=== PATIENT | female | born 1980 | race Caucasian/White ===

== ENCOUNTER 2017-01-10 17:22 | Observation (INO) | payer MEDICAID ==
[2017-01-10] MEDS ORDERED: Sodium Chloride 0.9% 10 ML Syringe FLUSH PRN (18:00)
[2017-01-10] MEDS ORDERED: Dextrose 5%-Lactated Ringers 1,000 ML IV SCH (18:00)
[2017-01-10] MEDS ORDERED: Ondansetron 4 MG/2 ML SDV IVPUSH PRN ×2 (18:00→20:36)
[2017-01-10] MEDS ORDERED: Nitrofurantoin Monohydrate/Macrocrystalline 100 MG Cap PO ONE (19:48)
[2017-01-10] MEDS ORDERED: hydrOXYzine HCl 25 MG/ML SDV IM ONE ×2 (20:34→21:45)
[2017-01-10] MEDS ORDERED: cefOXitin 2 GM in Premix Bag 1 BAG IV ONE (20:55)
[2017-01-10] MEDS: Lactated Ringers 1,000 ML IV SCH (21:08)
[2017-01-10] MEDS: Pantoprazole 40 MG Vial IVPUSH SCH (21:25)
[2017-01-11 01:32] VITALS: BP 122/66
[2017-01-11] MEDS: Lactated Ringers 1,000 ML IV SCH (05:58)
--- NOTE | 2017-01-11 08:05 | PCM.LDHP ---
L&D History of Present Illness - General Date of Service: 01/11/17 Admit Problem/Dx: Patient Status Order with Admit Dx/Problem 01/10/17 18:00 Patient Status [ADT] Routine 01/10/17 20:39 Admission Status [Patient Status] [ADT] Routine Admission Diagnosis/Problem Admission Diagnosis/Problem complications Source of Information: Patient History Limitations: Reports: No Limitations - History of Present Illness Introduction:: 36-year-old 001 ANNY 02/11/17 presented to labor and delivery on 05/19 at estimated gestational age 35 weeks and 3 days complaining of onset of nausea and vomiting some lower abdominal pain and discomfort but no contractions also complaining of left upper quadrant pain patient was treated with IV hydration and labs were drawn patient has history of anemia taking vitamins at breakfast R and vitamin C at lunch and supper patient urinalysis revealed many bacteria she was given Mefoxin 2 g intravenously and because of persistent nausea and vomiting was placed on observation status patient was given Protonix IV and Zofran IV and Vistaril 50 mg IM patient continued with nausea and vomiting and placed in by mouth gallbladder ultrasound ordered for Monday01/11/17 Improves with: Reports: None Worsens with: Reports: None - Related Data Allergies/Adverse Reactions: Allergies Allergy/AdvReac Type Severity Reaction Status Date / Time No Known Allergies Allergy Verified 10/01/16 19:56 Home Medications: Home Meds Vit #108/Iron/FA [ One Tablet] 1 tab PO DAILY 07/08/16 [History ] Acetaminophen [Tylenol] 650 mg PO Q6H PRN #0 tablet 07/10/16 [Rx] Nitrofurantoin Monohyd/M-Cryst [Macrobid 100 mg Capsule] 100 mg PO BID #20 capsule 01/10/17 [Rx] Nitrofurantoin Monohyd/M-Cryst [Macrobid 100 mg Capsule] 100 mg PO BID #20 capsule 01/10/17 [Rx] Past Medical History - Past Health History Medical/Surgical History: Denies Medical/Surgical History Genitourinary History: Reports: UTI, Recurrent, Other (See Below) Other Genitourinary History: states she was admitted a few months ago for kidney inffention [employer]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: Reports: Hematologic History: Reports: Anemia - Infectious Disease History Infectious Disease History: Reports: None Social & Family History - Family History Family Medical History: Noncontributory - Tobacco Use Smoking Status *Q: Former Smoker Years of Tobacco use: 20 Packs/Tins Daily: 1.5 Used Tobacco, but Quit: Yes Month Tobacco Last Used: 09/29/2016 Second Hand Smoke Exposure: Yes - Caffeine Use Caffeine Use: Reports: Coffee Caffeine Use Comment: drinks coffee daily - Alcohol Use Days Per Week of Alcohol Use: 0 - Recreational Drug Use Recreational Drug Use: No H&P Review of Systems - Review of Systems: Review Of Systems: See Below General: Reports: No Symptoms HEENT: Reports: No Symptoms Pulmonary: Reports: No Symptoms Cardiovascular: Reports: No Symptoms Gastrointestinal: Reports: Abdominal Pain (Left upper quadrant and midline suprapubic contractions) Genitourinary: Reports: No Symptoms Musculoskeletal: Reports: No Symptoms Skin: Reports: No Symptoms Psychiatric: Reports: No Symptoms Neurological: Reports: No Symptoms Hematologic/Lymphatic: Reports: No Symptoms Immunologic: Reports: No Symptoms L&D Exam - Exam Exam: See Below - Vital Signs Vital Signs: Last Vital Signs Temp 98.1 F 01/11/17 01:32 Pulse 79 01/11/17 01:32 Resp 16 01/11/17 01:32 BP 122/66 01/11/17 01:32 Pulse Ox 99 01/11/17 01:32 Weight: 192 lb 8 oz - OB Specific Fundal Height In cm: 35 Heart Tones per Min: 135 - Exam General: Alert, Oriented HEENT: Mucosa Moist & [place] Neck: Supple, Trachea Midline Lungs: Clear to Auscultation, Normal Respiratory Effort Cardiovascular: Regular Rate, Regular Rhythm Abdomen: Normal Bowel Sounds, Soft Extremities: Normal Inspection Skin: Warm, Dry, Intact Psychiatric: Alert, Normal Affect, Normal Mood - Patient Data Lab Results Last 24 hrs: Laboratory Results - last 24 hr 01/10/17 01/10/17 01/10/17 Range/Units 18:00 18:35 18:35 WBC 8.09 (3.98-10.04) K/mm3 RBC 3.17 L (3.98-5.22) M/mm3 Hgb 9.7 L (11.2-15.7) gm/L Hct 28.6 L (34.1-44.9) % MCV 90.2 (79.4-94.8) fl MCH 30.6 (25.6-32.2) pg MCHC 33.9 (32.2-35.5) g/dl RDW Std Deviation 42.3 (36.4-46.3) fL Plt Count 140 L (182-369) K/mm3 MPV 11.6 (9.4-12.3) fl Neut % (Auto) 80.5 H (34.0-71.1) % Lymph % (Auto) 14.5 L (19.3-51.7) % [place] % (Auto) 3.2 L (4.7-12.5) % Eos % (Auto) 1.5 (0.7-5.8) Baso % (Auto) 0.1 (0.1-1.2) % Neut # (Auto) 6.51 H (1.56-6.13) K/mm3 Lymph # (Auto) 1.17 L (1.18-3.74) K/mm3 [place] # (Auto) 0.26 (0.24-0.36) K/mm3 Eos # (Auto) 0.12 (0.04-0.36) K/mm3 Baso # (Auto) 0.01 (0.01-0.08) K/mm3 Sodium 135 L (136-145) mEq/L Potassium 3.4 L (3.5-5.1) mEq/L Chloride 102 (98-107) mEq/L Carbon Dioxide 24 (21-32) mEq/L Anion Gap 12.4 (5-15) BUN 9 (7-18) mg/dL Creatinine 0.8 (0.55-1.02) mg/dL Est Cr Clr Drug Dosing 93.67 mL/min Estimated GFR (MDRD) > 60 (>60) mL/min BUN/Creatinine Ratio 11.3 L (14-18) Glucose 138 H (74-106) mg/dL Calcium 8.8 (8.5-10.1) mg/dL Total Bilirubin 0.2 (0.2-1.0) mg/dL AST 14 L (15-37) U/L ALT 15 (14-59) U/L Alkaline Phosphatase 154 H (46-116) U/L Total Protein 7.0 (6.4-8.2) g/dl Albumin 2.4 L (3.4-5.0) g/dl Globulin 4.6 gm/dL Albumin/Globulin Ratio 0.5 L (1-2) Urine Color Dark yellow (Yellow) Urine Appearance Clear (Clear) Urine pH 6.0 (5.0-8.0) Ur Specific [place] > or = 1.030 (1.005-1.030) Urine Protein 1+ H (Negative) Urine Glucose (UA) Negative (Negative) Urine Ketones Negative (Negative) Urine Occult Blood Trace-intact H (Negative) Urine Nitrite Negative (Negative) Urine Bilirubin 1+ H (Negative) Urine Urobilinogen 0.2 (0.2-1.0) Ur Leukocyte Esterase 2+ H (Negative) Urine RBC 0-5 (0-5) /hpf Urine WBC 50-75 H (0-5) /hpf Ur Epithelial Cells 50-75 H (0-5) /hpf Ur Squamous Epith Cells 50-75 H (0-5) /hpf Urine Bacteria Many H (FEW) /hpf Urine Mucus Moderate H (FEW) /hpf Result Diagrams: 01/10/17 18:35 01/10/17 18:35 Problem List Initiated/Reviewed/Updated: Yes Orders Last 24hrs: Active Orders 24 hr Category Date Time Status Admission Status [Patient Status] [ADT] Routine ADT 01/10/17 20:39 Active Patient Status [ADT] Routine ADT 01/10/17 18:00 Active Monitoring [RC] INTERMITTENT Care 01/10/17 20:40 Active Non Stress Test [RC] PER UNIT ROUTINE Care 01/10/17 18:00 Active Peripheral IV Care [RC] Q2HR Care 01/10/17 18:02 Active Vital Signs [RC] PER UNIT ROUTINE Care 01/10/17 18:00 Active Regular Diet [DIET] Diet 01/10/17 Dinner Active Gallbladder [Abdomen Ltd] [US] Routine Exams 01/11/17 07:00 Ordered CULTURE URINE [RM] Stat Lab 01/10/17 18:00 Results Dextrose 5%-Lactated Ringers 1,000 ml Med 01/10/17 18:00 Active IV ASDIRECTED Lactated Ringers [Ringers, Lactated] 1,000 ml Med 01/10/17 20:45 Active IV ASDIRECTED Ondansetron [Zofran] Med 01/10/17 20:36 Active 4 mg IVPUSH Q4HR PRN Pantoprazole [ProTONIX IV] Med 01/10/17 20:30 Active 40 mg IVPUSH Q12H Sodium Chloride 0.9% [Saline Flush] Med 01/10/17 18:00 Active 10 ml FLUSH ASDIRECTED PRN Peripheral IV Insertion Adult [OM.PC] Urgent Oth 01/10/17 18:00 Ordered Resuscitation Status Routine Resus Stat 01/10/17 18:00 Ordered Medication Orders Dextrose/Lactated Ringer's (Dextrose 5%-Lactated Ringers) 1,000 mls @ 500 mls/ hr IV ASDIRECTED [facility] Last Admin: 01/10/17 18:20 Dose: 500 mls/hr Lactated Ringer's (Ringers, Lactated) 1,000 mls @ 150 mls/hr IV ASDIRECTED [facility] Last Admin: 01/11/17 05:58 Dose: 150 mls/hr Infusion: 01/11/17 03:49 Dose: 150 mls/hr Admin: 01/10/17 21:08 Dose: 150 mls/hr Ondansetron HCl (Zofran) 4 mg IVPUSH Q4HR PRN PRN Reason: Nausea/Vomiting Last Admin: 01/10/17 21:12 Dose: 4 mg Pantoprazole Sodium (Protonix Iv) 40 mg IVPUSH Q12H [facility] Last Admin: 01/10/17 21:25 Dose: 40 mg Sodium Chloride (Saline Flush) 10 ml FLUSH ASDIRECTED PRN PRN Reason: Keep Vein Open Assessment/Plan Comment:: Estimate gestational age Z3A.35 Nausea and vomiting antepartum O21.9 Bacteriuria O99.89
--- NOTE | 2017-01-11 08:17 | PCM.DCSUM1 ---
Discharge Summary - Hospital Course Free Text/Narrative:: [facility] LIVE Admission H&P Patient Name: PUJA DUNLAP Date of : 82 Patient Status: Observation Attending Provider: Zack Boyd Date: 01/11/17 07:57 Initialization Date: 01/11/17 07:57 L&D History of Present Illness - General Date of Service: 01/11/17 Admit Problem/Dx: Patient Status Order with Admit Dx/Problem 01/10/17 18:00 Patient Status [ADT] Routine 01/10/17 20:39 Admission Status [Patient Status] [ADT] Routine Admission Diagnosis/Problem Admission Diagnosis/Problem complications Source of Information: Patient History Limitations: Reports: No Limitations - History of Present Illness Introduction:: 36-year-old 001 ANNY 02/11/17 presented to labor and delivery on 05/19 at estimated gestational age 35 weeks and 3 days complaining of onset of nausea and vomiting some lower abdominal pain and discomfort but no contractions also complaining of left upper quadrant pain patient was treated with IV hydration and labs were drawn patient has history of anemia taking vitamins at breakfast R and vitamin C at lunch and supper patient urinalysis revealed many bacteria she was given Mefoxin 2 g intravenously and because of persistent nausea and vomiting was placed on observation status patient was given Protonix IV and Zofran IV and Vistaril 50 mg IM patient continued with nausea and vomiting and placed in by mouth gallbladder ultrasound ordered for Monday01/11/17 Improves with: Reports: None Worsens with: Reports: None - Related Data Allergies/Adverse Reactions: Allergies Allergy/AdvReac Type Severity Reaction Status Date / Time No Known Allergies Allergy Verified 10/01/16 19:56 Home Medications: Home Meds Vit #108/Iron/FA [ One Tablet] 1 tab PO DAILY 07/08/16 [History ] Acetaminophen [Tylenol] 650 mg PO Q6H PRN #0 tablet 07/10/16 [Rx] Nitrofurantoin Monohyd/M-Cryst [Macrobid 100 mg Capsule] 100 mg PO BID #20 capsule 01/10/17 [Rx] Nitrofurantoin Monohyd/M-Cryst [Macrobid 100 mg Capsule] 100 mg PO BID #20 capsule 01/10/17 [Rx] Past Medical History - Past Health History Medical/Surgical History: Denies Medical/Surgical History Genitourinary History: Reports: UTI, Recurrent, Other (See Below) Other Genitourinary History: states she was admitted a few months ago for kidney inffention [employer] History: Reports: Hematologic History: Reports: Anemia - Infectious Disease History Infectious Disease History: Reports: None Social & Family History - Family History Family Medical History: Noncontributory - Tobacco Use Smoking Status *Q: Former Smoker Years of Tobacco use: 20 Packs/Tins Daily: 1.5 Used Tobacco, but Quit: Yes Month Tobacco Last Used: 09/29/2016 Second Hand Smoke Exposure: Yes - Caffeine Use Caffeine Use: Reports: Coffee Caffeine Use Comment: drinks coffee daily - Alcohol Use Days Per Week of Alcohol Use: 0 - Recreational Drug Use Recreational Drug Use: No H&P Review of Systems - Review of Systems: Review Of Systems: See Below General: Reports: No Symptoms HEENT: Reports: No Symptoms Pulmonary: Reports: No Symptoms Cardiovascular: Reports: No Symptoms Gastrointestinal: Reports: Abdominal Pain (Left upper quadrant and midline suprapubic contractions) Genitourinary: Reports: No Symptoms Musculoskeletal: Reports: No Symptoms Skin: Reports: No Symptoms Psychiatric: Reports: No Symptoms Neurological: Reports: No Symptoms Hematologic/Lymphatic: Reports: No Symptoms Immunologic: Reports: No Symptoms L&D Exam - Exam Exam: See Below - Vital Signs Vital Signs: Last Vital Signs Temp 98.1 F 01/11/17 01:32 Pulse 79 01/11/17 01:32 Resp 16 01/11/17 01:32 BP 122/66 01/11/17 01:32 Pulse Ox 99 01/11/17 01:32 Weight: 192 lb 8 oz - OB Specific Fundal Height In cm: 35 Heart Tones per Min: 135 - Exam General: Alert, Oriented HEENT: Mucosa Moist & [place] Neck: Supple, Trachea Midline Lungs: Clear to Auscultation, Normal Respiratory Effort Cardiovascular: Regular Rate, Regular Rhythm Abdomen: Normal Bowel Sounds, Soft Extremities: Normal Inspection Skin: Warm, Dry, Intact Psychiatric: Alert, Normal Affect, Normal Mood - Patient Data Lab Results Last 24 hrs: Laboratory Results - last 24 hr 01/10/17 01/10/17 01/10/17 Range/Units 18:00 18:35 18:35 WBC 8.09 (3.98-10.04) K/mm3 RBC 3.17 L (3.98-5.22) M/mm3 Hgb 9.7 L (11.2-15.7) gm/L Hct 28.6 L (34.1-44.9) % MCV 90.2 (79.4-94.8) fl MCH 30.6 (25.6-32.2) pg MCHC 33.9 (32.2-35.5) g/dl RDW Std Deviation 42.3 (36.4-46.3) fL Plt Count 140 L (182-369) K/mm3 MPV 11.6 (9.4-12.3) fl Neut % (Auto) 80.5 H (34.0-71.1) % Lymph % (Auto) 14.5 L (19.3-51.7) % [place] % (Auto) 3.2 L (4.7-12.5) % Eos % (Auto) 1.5 (0.7-5.8) Baso % (Auto) 0.1 (0.1-1.2) % Neut # (Auto) 6.51 H (1.56-6.13) K/mm3 Lymph # (Auto) 1.17 L (1.18-3.74) K/mm3 [place] # (Auto) 0.26 (0.24-0.36) K/mm3 Eos # (Auto) 0.12 (0.04-0.36) K/mm3 Baso # (Auto) 0.01 (0.01-0.08) K/mm3 Sodium 135 L (136-145) mEq/L Potassium 3.4 L (3.5-5.1) mEq/L Chloride 102 (98-107) mEq/L Carbon Dioxide 24 (21-32) mEq/L Anion Gap 12.4 (5-15) BUN 9 (7-18) mg/dL Creatinine 0.8 (0.55-1.02) mg/dL Est Cr Clr Drug Dosing 93.67 mL/min Estimated GFR (MDRD) > 60 (>60) mL/min BUN/Creatinine Ratio 11.3 L (14-18) Glucose 138 H (74-106) mg/dL Calcium 8.8 (8.5-10.1) mg/dL Total Bilirubin 0.2 (0.2-1.0) mg/dL AST 14 L (15-37) U/L ALT 15 (14-59) U/L Alkaline Phosphatase 154 H (46-116) U/L Total Protein 7.0 (6.4-8.2) g/dl Albumin 2.4 L (3.4-5.0) g/dl Globulin 4.6 gm/dL Albumin/Globulin Ratio 0.5 L (1-2) Urine Color Dark yellow (Yellow) Urine Appearance Clear (Clear) Urine pH 6.0 (5.0-8.0) Ur Specific [place] > or = 1.030 (1.005-1.030) Urine Protein 1+ H (Negative) Urine Glucose (UA) Negative (Negative) Urine Ketones Negative (Negative) Urine Occult Blood Trace-intact H (Negative) Urine Nitrite Negative (Negative) Urine Bilirubin 1+ H (Negative) Urine Urobilinogen 0.2 (0.2-1.0) Ur Leukocyte Esterase 2+ H (Negative) Urine RBC 0-5 (0-5) /hpf Urine WBC 50-75 H (0-5) /hpf Ur Epithelial Cells 50-75 H (0-5) /hpf Ur Squamous Epith Cells 50-75 H (0-5) /hpf Urine Bacteria Many H (FEW) /hpf Urine Mucus Moderate H (FEW) /hpf Result Diagrams: 01/10/17 18:35 01/10/17 18:35 Problem List Initiated/Reviewed/Updated: Yes Orders Last 24hrs: Active Orders 24 hr Category Date Time Status Admission Status [Patient Status] [ADT] Routine ADT 01/10/17 20:39 Active Patient Status [ADT] Routine ADT 01/10/17 18:00 Active Monitoring [RC] INTERMITTENT Care 01/10/17 20:40 Active Non Stress Test [RC] PER UNIT ROUTINE Care 01/10/17 18:00 Active Peripheral IV Care [RC] Q2HR Care 01/10/17 18:02 Active Vital Signs [RC] PER UNIT ROUTINE Care 01/10/17 18:00 Active Regular Diet [DIET] Diet 01/10/17 Dinner Active Gallbladder [Abdomen Ltd] [US] Routine Exams 01/11/17 07:00 Ordered CULTURE URINE [RM] Stat Lab 01/10/17 18:00 Results Dextrose 5%-Lactated Ringers 1,000 ml Med 01/10/17 18:00 Active IV ASDIRECTED Lactated Ringers [Ringers, Lactated] 1,000 ml Med 01/10/17 20:45 Active IV ASDIRECTED Ondansetron [Zofran] Med 01/10/17 20:36 Active 4 mg IVPUSH Q4HR PRN Pantoprazole [ProTONIX IV] Med 01/10/17 20:30 Active 40 mg IVPUSH Q12H Sodium Chloride 0.9% [Saline Flush] Med 01/10/17 18:00 Active 10 ml FLUSH ASDIRECTED PRN Peripheral IV Insertion Adult [OM.PC] Urgent Oth 01/10/17 18:00 Ordered Resuscitation Status Routine Resus Stat 01/10/17 18:00 Ordered Medication Orders Dextrose/Lactated Ringer's (Dextrose 5%-Lactated Ringers) 1,000 mls @ 500 mls/ hr IV ASDIRECTED ETTA Last Admin: 01/10/17 18:20 Dose: 500 mls/hr Lactated Ringer's (Ringers, Lactated) 1,000 mls @ 150 mls/hr IV ASDIRECTED ETTA Last Admin: 01/11/17 05:58 Dose: 150 mls/hr Infusion: 01/11/17 03:49 Dose: 150 mls/hr Admin: 01/10/17 21:08 Dose: 150 mls/hr Ondansetron HCl (Zofran) 4 mg IVPUSH Q4HR PRN PRN Reason: Nausea/Vomiting Last Admin: 01/10/17 21:12 Dose: 4 mg Pantoprazole Sodium (Protonix Iv) 40 mg IVPUSH Q12H [facility] Last Admin: 01/10/17 21:25 Dose: 40 mg Sodium Chloride (Saline Flush) 10 ml FLUSH ASDIRECTED PRN PRN Reason: Keep Vein Open Assessment/Plan Comment:: Estimate gestational age Z3A.35 Nausea and vomiting antepartum O21.9 Bacteriuria O99.89 01/11/17 Patient feeling better this morning hungry after gallbladder ultrasound with patient will heat and be dismissed canceled today's clinic appointment see me in the clinic on Monday01/16/17 HPI Initial Comments: [facility] LIVE Admission H&P Patient Name: PUJA DUNLAP Date of : 82 Patient Status: Observation Attending Provider: Zack Boyd Date: 01/11/17 07:57 Initialization Date: 01/11/17 07:57 L&D History of Present Illness - General Date of Service: 01/11/17 Admit Problem/Dx: Patient Status Order with Admit Dx/Problem 01/10/17 18:00 Patient Status [ADT] Routine 01/10/17 20:39 Admission Status [Patient Status] [ADT] Routine Admission Diagnosis/Problem Admission Diagnosis/Problem complications Source of Information: Patient History Limitations: Reports: No Limitations - History of Present Illness Introduction:: 36-year-old 001 ANNY 02/11/17 presented to labor and delivery on 05/19 at estimated gestational age 35 weeks and 3 days complaining of onset of nausea and vomiting some lower abdominal pain and discomfort but no contractions also complaining of left upper quadrant pain patient was treated with IV hydration and labs were drawn patient has history of anemia taking vitamins at breakfast R and vitamin C at lunch and supper patient urinalysis revealed many bacteria she was given Mefoxin 2 g intravenously and because of persistent nausea and vomiting was placed on observation status patient was given Protonix IV and Zofran IV and Vistaril 50 mg IM patient continued with nausea and vomiting and placed in by mouth gallbladder ultrasound ordered for Monday01/11/17 Improves with: Reports: None Worsens with: Reports: None - Related Data Allergies/Adverse Reactions: Allergies Allergy/AdvReac Type Severity Reaction Status Date / Time No Known Allergies Allergy Verified 10/01/16 19:56 Home Medications: Home Meds Vit #108/Iron/FA [ One Tablet] 1 tab PO DAILY 07/08/16 [History ] Acetaminophen [Tylenol] 650 mg PO Q6H PRN #0 tablet 07/10/16 [Rx] Nitrofurantoin Monohyd/M-Cryst [Macrobid 100 mg Capsule] 100 mg PO BID #20 capsule 01/10/17 [Rx] Nitrofurantoin Monohyd/M-Cryst [Macrobid 100 mg Capsule] 100 mg PO BID #20 capsule 01/10/17 [Rx] Past Medical History - Past Health History Medical/Surgical History: Denies Medical/Surgical History Genitourinary History: Reports: UTI, Recurrent, Other (See Below) Other Genitourinary History: states she was admitted a few months ago for kidney inffention [employer] History: Reports: Hematologic History: Reports: Anemia - Infectious Disease History Infectious Disease History: Reports: None Social & Family History - Family History Family Medical History: Noncontributory - Tobacco Use Smoking Status *Q: Former Smoker Years of Tobacco use: 20 Packs/Tins Daily: 1.5 Used Tobacco, but Quit: Yes Month Tobacco Last Used: 09/29/2016 Second Hand Smoke Exposure: Yes - Caffeine Use Caffeine Use: Reports: Coffee Caffeine Use Comment: drinks coffee daily - Alcohol Use Days Per Week of Alcohol Use: 0 - Recreational Drug Use Recreational Drug Use: No H&P Review of Systems - Review of Systems: Review Of Systems: See Below General: Reports: No Symptoms HEENT: Reports: No Symptoms Pulmonary: Reports: No Symptoms Cardiovascular: Reports: No Symptoms Gastrointestinal: Reports: Abdominal Pain (Left upper quadrant and midline suprapubic contractions) Genitourinary: Reports: No Symptoms Musculoskeletal: Reports: No Symptoms Skin: Reports: No Symptoms Psychiatric: Reports: No Symptoms Neurological: Reports: No Symptoms Hematologic/Lymphatic: Reports: No Symptoms Immunologic: Reports: No Symptoms L&D Exam - Exam Exam: See Below - Vital Signs Vital Signs: Last Vital Signs Temp 98.1 F 01/11/17 01:32 Pulse 79 01/11/17 01:32 Resp 16 01/11/17 01:32 BP 122/66 01/11/17 01:32 Pulse Ox 99 01/11/17 01:32 Weight: 192 lb 8 oz - OB Specific Fundal Height In cm: 35 Heart Tones per Min: 135 - Exam General: Alert, Oriented HEENT: Mucosa Moist & [place] Neck: Supple, Trachea Midline Lungs: Clear to Auscultation, Normal Respiratory Effort Cardiovascular: Regular Rate, Regular Rhythm Abdomen: Normal Bowel Sounds, Soft Extremities: Normal Inspection Skin: Warm, Dry, Intact Psychiatric: Alert, Normal Affect, Normal Mood - Patient Data Lab Results Last 24 hrs: Laboratory Results - last 24 hr 01/10/17 01/10/17 01/10/17 Range/Units 18:00 18:35 18:35 WBC 8.09 (3.98-10.04) K/mm3 RBC 3.17 L (3.98-5.22) M/mm3 Hgb 9.7 L (11.2-15.7) gm/L Hct 28.6 L (34.1-44.9) % MCV 90.2 (79.4-94.8) fl MCH 30.6 (25.6-32.2) pg MCHC 33.9 (32.2-35.5) g/dl RDW Std Deviation 42.3 (36.4-46.3) fL Plt Count 140 L (182-369) K/mm3 MPV 11.6 (9.4-12.3) fl Neut % (Auto) 80.5 H (34.0-71.1) % Lymph % (Auto) 14.5 L (19.3-51.7) % [place] % (Auto) 3.2 L (4.7-12.5) % Eos % (Auto) 1.5 (0.7-5.8) Baso % (Auto) 0.1 (0.1-1.2) % Neut # (Auto) 6.51 H (1.56-6.13) K/mm3 Lymph # (Auto) 1.17 L (1.18-3.74) K/mm3 [place] # (Auto) 0.26 (0.24-0.36) K/mm3 Eos # (Auto) 0.12 (0.04-0.36) K/mm3 Baso # (Auto) 0.01 (0.01-0.08) K/mm3 Sodium 135 L (136-145) mEq/L Potassium 3.4 L (3.5-5.1) mEq/L Chloride 102 (98-107) mEq/L Carbon Dioxide 24 (21-32) mEq/L Anion Gap 12.4 (5-15) BUN 9 (7-18) mg/dL Creatinine 0.8 (0.55-1.02) mg/dL Est Cr Clr Drug Dosing 93.67 mL/min Estimated GFR (MDRD) > 60 (>60) mL/min BUN/Creatinine Ratio 11.3 L (14-18) Glucose 138 H (74-106) mg/dL Calcium 8.8 (8.5-10.1) mg/dL Total Bilirubin 0.2 (0.2-1.0) mg/dL AST 14 L (15-37) U/L ALT 15 (14-59) U/L Alkaline Phosphatase 154 H (46-116) U/L Total Protein 7.0 (6.4-8.2) g/dl Albumin 2.4 L (3.4-5.0) g/dl Globulin 4.6 gm/dL Albumin/Globulin Ratio 0.5 L (1-2) Urine Color Dark yellow (Yellow) Urine Appearance Clear (Clear) Urine pH 6.0 (5.0-8.0) Ur Specific [place] > or = 1.030 (1.005-1.030) Urine Protein 1+ H (Negative) Urine Glucose (UA) Negative (Negative) Urine Ketones Negative (Negative) Urine Occult Blood Trace-intact H (Negative) Urine Nitrite Negative (Negative) Urine Bilirubin 1+ H (Negative) Urine Urobilinogen 0.2 (0.2-1.0) Ur Leukocyte Esterase 2+ H (Negative) Urine RBC 0-5 (0-5) /hpf Urine WBC 50-75 H (0-5) /hpf Ur Epithelial Cells 50-75 H (0-5) /hpf Ur Squamous Epith Cells 50-75 H (0-5) /hpf Urine Bacteria Many H (FEW) /hpf Urine Mucus Moderate H (FEW) /hpf Result Diagrams: 01/10/17 18:35 01/10/17 18:35 Problem List Initiated/Reviewed/Updated: Yes Orders Last 24hrs: Active Orders 24 hr Category Date Time Status Admission Status [Patient Status] [ADT] Routine ADT 01/10/17 20:39 Active Patient Status [ADT] Routine ADT 01/10/17 18:00 Active Monitoring [RC] INTERMITTENT Care 01/10/17 20:40 Active Non Stress Test [RC] PER UNIT ROUTINE Care 01/10/17 18:00 Active Peripheral IV Care [RC] Q2HR Care 01/10/17 18:02 Active Vital Signs [RC] PER UNIT ROUTINE Care 01/10/17 18:00 Active Regular Diet [DIET] Diet 01/10/17 Dinner Active Gallbladder [Abdomen Ltd] [US] Routine Exams 01/11/17 07:00 Ordered CULTURE URINE [RM] Stat Lab 01/10/17 18:00 Results Dextrose 5%-Lactated Ringers 1,000 ml Med 01/10/17 18:00 Active IV ASDIRECTED Lactated Ringers [Ringers, Lactated] 1,000 ml Med 01/10/17 20:45 Active IV ASDIRECTED Ondansetron [Zofran] Med 01/10/17 20:36 Active 4 mg IVPUSH Q4HR PRN Pantoprazole [ProTONIX IV] Med 01/10/17 20:30 Active 40 mg IVPUSH Q12H Sodium Chloride 0.9% [Saline Flush] Med 01/10/17 18:00 Active 10 ml FLUSH ASDIRECTED PRN Peripheral IV Insertion Adult [OM.PC] Urgent Oth 01/10/17 18:00 Ordered Resuscitation Status Routine Resus Stat 01/10/17 18:00 Ordered Medication Orders Dextrose/Lactated Ringer's (Dextrose 5%-Lactated Ringers) 1,000 mls @ 500 mls/ hr IV ASDIRECTED ETTA Last Admin: 01/10/17 18:20 Dose: 500 mls/hr Lactated Ringer's (Ringers, Lactated) 1,000 mls @ 150 mls/hr IV ASDIRECTED ETTA Last Admin: 01/11/17 05:58 Dose: 150 mls/hr Infusion: 01/11/17 03:49 Dose: 150 mls/hr Admin: 01/10/17 21:08 Dose: 150 mls/hr Ondansetron HCl (Zofran) 4 mg IVPUSH Q4HR PRN PRN Reason: Nausea/Vomiting Last Admin: 01/10/17 21:12 Dose: 4 mg Pantoprazole Sodium (Protonix Iv) 40 mg IVPUSH Q12H [facility] Last Admin: 01/10/17 21:25 Dose: 40 mg Sodium Chloride (Saline Flush) 10 ml FLUSH ASDIRECTED PRN PRN Reason: Keep Vein Open Assessment/Plan Comment:: Estimate gestational age Z3A.35 Nausea and vomiting antepartum O21.9 Bacteriuria O99.89 01/11/17 Patient feeling better this morning hungry after gallbladder ultrasound with patient will heat and be dismissed canceled today's clinic appointment see me in the clinic on Monday01/16/17 Brief History: [facility]IVE . Ad[facility]P . [facility]: [id number]. Date of : [birth year]Patient Status: Observation. Attending Provider: Zack Boyd Number: [id number]. Date: 01/11/17 07:57Initialization Date: 01/11/17 07:57. L&D History of Present Illness. - General. Date of Service: 01/11/17. Admit Problem/Dx: Patient Status Order with Admit Dx/Problem. 01/10/17 18:00. Patient Status [ADT] Routine. 01/10/17 20:39. Admission Status [Patient Status] [ADT] Routine. Admission Diagnosis/Problem. Admission Diagnosis/ Problem complications. Source of Information: Patient. History Limitations: Reports: No Limitations. - History of Present Illness. Introduction:: 36-year-old 001 ANNY 02/11/17 presented to labor and delivery on Monday01/10/17 at estimated gestational age 35 weeks and 3 days complaining of onset of nausea and vomiting some lower abdominal pain and discomfort but no contractions also complaining of left upper quadrant pain patient was treated with IV hydration and labs were drawn patient has history of anemia taking vitamins at breakfast R and vitamin C at lunch and supper patient urinalysis revealed many bacteria she was given Mefoxin 2 g intravenously and because of persistent nausea and vomiting was placed on observation status patient was given Protonix IV and Zofran IV and Vistaril 50 mg IM patient continued with nausea and vomiting and placed in by mouth gallbladder ultrasound ordered for Monday01/11/17. Improves with: Reports: None. Worsens with: Reports: None. - Related Data. Allergies/ Adverse Reactions: Allergies. Allergy/AdvReacTypeSeverityReactionStatusDate / Time. No Known [id number]/01/17 19:56. Home Medications: Home Meds. Vit #108/Iron/FA [ One Tablet] 1 tab PO DAILY 07/08 [History]. Acetaminophen [Tylenol] 650 mg PO Q6H PRN #0 tablet 07/10/16 [Rx ]. Nitrofurantoin Monohyd/M-Cryst [Macrobid 100 mg Capsule] 100 mg PO BID #20 capsule 01/10/17 [Rx]. Nitrofurantoin Monohyd/M-Cryst [Macrobid 100 mg Capsule ] 100 mg PO BID #20 capsule 01/10/17 [Rx]. Past Medical History. - Past Health History. Medical/Surgical History: Denies Medical/Surgical History. Genitourinary History: Reports: UTI, Recurrent, Other (See Below). Other Genitourinary History: states she was admitted a few months ago for kidney inffention. [employer] History: Reports: . Hematologic History: Reports: Anemia. - Infectious Disease History. Infectious Disease History: Reports: None. Social & Family History. - Family History. Family Medical History: Noncontributory. - Tobacco Use. Smoking Status *Q: Former Smoker. Years of Tobacco use: 20. Packs/Tins Daily: 1.5. Used Tobacco, but Quit: Yes. Month Tobacco Last Used: 09/29/2016. Second Hand Smoke Exposure: Yes. - Caffeine Use. Caffeine Use: Reports: Coffee. Caffeine Use Comment: drinks coffee daily. - Alcohol Use. Days Per Week of Alcohol Use: 0. - Recreational Drug Use. Recreational Drug Use: No. H&P Review of Systems. - Review of Systems: Review Of Systems: See Below. General: Reports: No Symptoms. HEENT: Reports: No Symptoms. Pulmonary: Reports: No Symptoms. Cardiovascular: Reports: No Symptoms. Gastrointestinal: Reports: Abdominal Pain (Left upper quadrant and midline suprapubic contractions). Genitourinary: Reports: No Symptoms. Musculoskeletal: Reports: No Symptoms. Skin: Reports: No Symptoms. Psychiatric : Reports: No Symptoms. Neurological: Reports: No Symptoms. Hematologic/ Lymphatic: Reports: No Symptoms. Immunologic: Reports: No Symptoms. L&D Exam. - Exam. Exam: See Below. - Vital Signs. Vital Signs: Last Vital Signs. Temp 98.1 F 01/11/17 01:32. Pulse 79 01/11/17 01:32. Resp 16 01/11/17 01: 32. BP 122/66 01/11/17 01:32. Pulse Ox 99 01/11/17 01:32. Weight: 192 lb 8 oz. - OB Specific. Fundal Height In cm: 35. Heart Tones per Min: 135. - Exam. General: Alert, Oriented. HEENT: Mucosa Moist & [place]. Neck: Supple, Trachea Midline. Lungs: Clear to Auscultation, Normal Respiratory Effort. Cardiovascular: Regular Rate, Regular Rhythm. Abdomen: Normal Bowel Sounds, Soft. Extremities: Normal Inspection. Skin: Warm, Dry, Intact. Psychiatric: Alert, Normal Affect, Normal Mood. - Patient Data. Lab Results Last 24 hrs: Laboratory Results - last 24 hr. 01/10/1707/05/1707Range/Units. 18:0018: 3518:35. WBC 8.09 (3.98-10.04) K/mm3. RBC 3.17 L (3.98-5.22) M/mm3. Hgb 9.7 L (11.2-15.7) gm/L. Hct 28.6 L (34.1-44.9) %. MCV 90.2 (79.4-94.8) fl. MCH 30.6 (25.6-32.2) pg. MCHC 33.9 (32.2-35.5) g/dl. RDW Std Deviation 42.3 (36.4-46.3) fL. Plt Count 140 L (182-369) K/mm3. MPV 11.6 (9.4-12.3) fl. Neut % (Auto) 80.5 H (34.0-71.1) %. Lymph % (Auto) 14.5 L (19.3-51.7) % . [place] % (Auto) 3.2 L (4.7-12.5) %. Eos % (Auto) 1.5 (0.7-5.8). Baso % (Auto ) 0.1 (0.1-1.2) %. Neut # (Auto) 6.51 H (1.56-6.13) K/mm3. Lymph # (Auto) 1.17 L (1.18-3.74) K/mm3. [place] # (Auto) 0.26 (0.24-0.36) K/mm3. Eos # (Auto ) 0.12 (0.04-0.36) K/mm3. Baso # (Auto) 0.01 (0.01-0.08) K/mm3. Sodium 135 L (136-145) mEq/L. Potassium 3.4 L (3.5-5.1) mEq/L. Chloride 102 (98-107) mEq/L. Carbon Dioxide 24 (21-32) mEq/L. Anion Gap 12.4 (5-15). BUN 9 (7-18) mg/dL. Creatinine 0.8 (0.55-1.02) mg/dL. Est Cr Clr Drug Dosing 93.67 mL/ min. Estimated GFR (MDRD) > 60 (>60) mL/min. BUN/Creatinine Ratio 11.3 L (14- 18). Glucose 138 H (74-106) mg/dL. Calcium 8.8 (8.5-10.1) mg/dL. Total Bilirubin 0.2 (0.2-1.0) mg/dL. AST 14 L (15-37) U/L. ALT 15 (14-59) U/L. Alkaline Phosphatase 154 H (46-116) U/L. Total Protein 7.0 (6.4-8.2) g/dl. Albumin 2.4 L (3.4-5.0) g/dl. Globulin 4.6 gm/dL. Albumin/Globulin Ratio 0.5 L (1-2). Urine Color Dark yellow (Yellow). Urine Appearance Clear (Clear). Urine pH 6.0 (5.0-8.0). Ur Specific [place] > or = 1.030 (1.005-1.030). Urine Protein 1+ H (Negative). Urine Glucose (UA) Negative (Negative). Urine Ketones Negative (Negative). Urine Occult Blood Trace-intact H (Negative). Urine Nitrite Negative (Negative). Urine Bilirubin 1+ H (Negative). Urine Urobilinogen 0.2 (0.2-1.0). Ur Leukocyte Esterase 2+ H (Negative). Urine RBC 0 -5 (0-5) /hpf. Urine WBC 50-75 H (0-5) /hpf. Ur Epithelial Cells 50-75 H (0- 5) /hpf. Ur Squamous Epith Cells 50-75 H (0-5) /hpf. Urine Bacteria Many H ( FEW) /hpf. Urine Mucus Moderate H (FEW) /hpf. Result Diagrams: 01/10/17 18: 35. 01/10/17 18:35. Problem List Initiated/Reviewed/Updated: Yes. Orders Last 24hrs: Active Orders 24 hr. CategoryDate TimeStatus. Admission Status [ Patient Status] [ADT] RoutineADT 01/10/17 20:39Active. Patient Status [ADT] RoutineADT 01/10/17 18:00Active. Monitoring [RC] INTERMITTENTCare 20:40Active. Non Stress Test [RC] PER UNIT ROUTINECare 01/10/17 18: 00Active. Peripheral IV Care [RC] [id number] 01/10/17 18:02Active. Vital Signs [ RC] PER UNIT ROUTINECare 01/10/17 18:00Active. Regular Diet [DIET]Diet DinnerActive. Gallbladder [Abdomen Ltd] [US] RoutineExams 01/11/17 07: 00Ordered. CULTURE URINE [] StatLab 01/10/17 18:00Results. Dextrose 5%- Lactated Ringers 1,000 mlMed 01/10/17 18:00Active. IV ASDIRECTED. Lactated Ringers [Ringers, Lactated] 1,000 mlMed 01/10/17 20:45Active. IV ASDIRECTED. Ondansetron [Zofran]Med 01/10/17 20:36Active. 4 mg IVPUSH Q4HR PRN. Pantoprazole [ProTONIX IV]Med 01/10/17 20:30Active. 40 mg IVPUSH Q12H. Sodium Chloride 0.9% [Saline Flush]Med 01/10/17 18:00Active. 10 ml FLUSH ASDIRECTED PRN. Peripheral IV Insertion Adult [OM.PC] UrgentOth 01/10/17 18: 00Ordered. Resuscitation Status RoutineResus Stat 01/10/17 18:00Ordered. Medication Orders. Dextrose/Lactated Ringer's (Dextrose 5%-Lactated Ringers) 1 ,000 mls @ 500 mls/hr IV ASDIRECTED ETTA. Last Admin: 01/10/17 18:20 Dose: 500 mls/hr. Lactated Ringer's (Ringers, Lactated) 1,000 mls @ 150 mls/hr IV ASDIRECTED ETTA. Last Admin: 01/11/17 05:58 Dose: 150 mls/hr. Infusion: 03:49 Dose: 150 mls/hr. Admin: 01/10/17 21:08 Dose: 150 mls/hr. Ondansetron HCl (Zofran) 4 mg IVPUSH Q4HR PRN. PRN Reason: Nausea/Vomiting. Last Admin: 01/10/17 21:12 Dose: 4 mg. Pantoprazole Sodium (Protonix Iv) 40 mg IVPUSH Q12H ETTA. Last Admin: 01/10/17 21:25 Dose: 40 mg. Sodium Chloride (Saline Flush) 10 ml FLUSH ASDIRECTED PRN. PRN Reason: Keep Vein Open. Assessment/Plan Comment:: Estimate gestational age Z3A.35. Nausea and vomiting antepartum O21.9. Bacteriuria O99.89. 01/11/17. Patient feeling better this morning hungry after gallbladder ultrasound with patient will heat and be dismissed canceled today's clinic appointment see me in the clinic on Monday01/16/17 - Discharge Data Discharge Date: 01/11/17 Discharge Disposition: Home, Self-Care 01 Condition: Good - Discharge Diagnosis/Problem(s) (1) 35 weeks gestation of SNOMED Code(s): 40575980 ICD Code: Z3A.35 - 35 WEEKS GESTATION OF Status: Acute Current Visit: Yes (2) Bacteriuria during in third trimester SNOMED Code(s): 61569564 ICD Code: O99.89 - OTH DISEASES AND CONDITIONS COMPL PREG/CHLDBRTH; R82.71 - BACTERIURIA Status: Acute Current Visit: Yes (3) Nausea and vomiting of , antepartum SNOMED Code(s): 84859065 ICD Code: O21.9 - VOMITING OF , UNSPECIFIED Status: Acute Current Visit: Yes - Patient Summary/Data Operative Procedure(s) Performed: None Complications: None Consults: None Hospital Course: Uneventful - Patient Instructions Diet: Heart Healthy Diet Driving: May Drive Today Showering/Bathing: May Shower Notify Provider of: Fever, Increased Pain, Swelling and Redness, Drainage, Nausea and/or Vomiting - Discharge Plan Prescriptions/Med Rec: Nitrofurantoin Monohyd/M-Cryst [Macrobid 100 mg Capsule] 100 mg PO BID #20 capsule Nitrofurantoin Monohyd/M-Cryst [Macrobid 100 mg Capsule] 100 mg PO BID #20 capsule Pantoprazole Sodium [Protonix] 20 mg PO DAILY #30 tablet. Home Medications: Home Meds Vit #108/Iron/FA [ One Tablet] 1 tab PO DAILY 07/08/16 [History ] Acetaminophen [Tylenol] 650 mg PO Q6H PRN #0 tablet 07/10/16 [Rx] Nitrofurantoin Monohyd/M-Cryst [Macrobid 100 mg Capsule] 100 mg PO BID #20 capsule 01/10/17 [Rx] Nitrofurantoin Monohyd/M-Cryst [Macrobid 100 mg Capsule] 100 mg PO BID #20 capsule 01/10/17 [Rx] Pantoprazole Sodium [Protonix] 20 mg PO DAILY #30 tablet. 01/11/17 [Rx] Referrals: Zack Boyd MD [Primary Care Provider] - (01/16/2017 and canceled today' s appointment) - Discharge Summary/Plan Comment DC Time >30 min.: No - Patient Data Vitals - Most Recent: Last Vital Signs Temp 98.1 F 01/11/17 01:32 Pulse 79 01/11/17 01:32 Resp 16 01/11/17 01:32 BP 122/66 01/11/17 01:32 Pulse Ox 99 01/11/17 01:32 Weight - Most Recent: 192 lb 8 oz I&O - Last 24 hours: Intake & Output 01/10/17 01/11/17 01/11/17 22:59 06:59 14:59 Intake Total 1999 Balance 1999 Lab Results - Last 24 hrs: Laboratory Results - last 24 hr 01/10/17 01/10/17 01/10/17 Range/Units 18:00 18:35 18:35 WBC 8.09 (3.98-10.04) K/mm3 RBC 3.17 L (3.98-5.22) M/mm3 Hgb 9.7 L (11.2-15.7) gm/L Hct 28.6 L (34.1-44.9) % MCV 90.2 (79.4-94.8) fl MCH 30.6 (25.6-32.2) pg MCHC 33.9 (32.2-35.5) g/dl RDW Std Deviation 42.3 (36.4-46.3) fL Plt Count 140 L (182-369) K/mm3 MPV 11.6 (9.4-12.3) fl Neut % (Auto) 80.5 H (34.0-71.1) % Lymph % (Auto) 14.5 L (19.3-51.7) % [place] % (Auto) 3.2 L (4.7-12.5) % Eos % (Auto) 1.5 (0.7-5.8) Baso % (Auto) 0.1 (0.1-1.2) % Neut # (Auto) 6.51 H (1.56-6.13) K/mm3 Lymph # (Auto) 1.17 L (1.18-3.74) K/mm3 [place] # (Auto) 0.26 (0.24-0.36) K/mm3 Eos # (Auto) 0.12 (0.04-0.36) K/mm3 Baso # (Auto) 0.01 (0.01-0.08) K/mm3 Sodium 135 L (136-145) mEq/L Potassium 3.4 L (3.5-5.1) mEq/L Chloride 102 (98-107) mEq/L Carbon Dioxide 24 (21-32) mEq/L Anion Gap 12.4 (5-15) BUN 9 (7-18) mg/dL Creatinine 0.8 (0.55-1.02) mg/dL Est Cr Clr Drug Dosing 93.67 mL/min Estimated GFR (MDRD) > 60 (>60) mL/min BUN/Creatinine Ratio 11.3 L (14-18) Glucose 138 H (74-106) mg/dL Calcium 8.8 (8.5-10.1) mg/dL Total Bilirubin 0.2 (0.2-1.0) mg/dL AST 14 L (15-37) U/L ALT 15 (14-59) U/L Alkaline Phosphatase 154 H (46-116) U/L Total Protein 7.0 (6.4-8.2) g/dl Albumin 2.4 L (3.4-5.0) g/dl Globulin 4.6 gm/dL Albumin/Globulin Ratio 0.5 L (1-2) Urine Color Dark yellow (Yellow) Urine Appearance Clear (Clear) Urine pH 6.0 (5.0-8.0) Ur Specific [place] > or = 1.030 (1.005-1.030) Urine Protein 1+ H (Negative) Urine Glucose (UA) Negative (Negative) Urine Ketones Negative (Negative) Urine Occult Blood Trace-intact H (Negative) Urine Nitrite Negative (Negative) Urine Bilirubin 1+ H (Negative) Urine Urobilinogen 0.2 (0.2-1.0) Ur Leukocyte Esterase 2+ H (Negative) Urine RBC 0-5 (0-5) /hpf Urine WBC 50-75 H (0-5) /hpf Ur Epithelial Cells 50-75 H (0-5) /hpf Ur Squamous Epith Cells 50-75 H (0-5) /hpf Urine Bacteria Many H (FEW) /hpf Urine Mucus Moderate H (FEW) /hpf Med Orders - Current: Current Medications Dextrose/Lactated Ringer's (Dextrose 5%-Lactated Ringers) 1,000 mls @ 500 mls/ hr IV ASDIRECTED [facility] Last Admin: 01/10/17 18:20 Dose: 500 mls/hr Lactated Ringer's (Ringers, Lactated) 1,000 mls @ 150 mls/hr IV ASDIRECTED [facility] Last Admin: 01/11/17 05:58 Dose: 150 mls/hr Ondansetron HCl (Zofran) 4 mg IVPUSH Q4HR PRN PRN Reason: Nausea/Vomiting Last Admin: 01/10/17 21:12 Dose: 4 mg Pantoprazole Sodium (Protonix Iv) 40 mg IVPUSH Q12H [facility] Last Admin: 01/10/17 21:25 Dose: 40 mg Sodium Chloride (Saline Flush) 10 ml FLUSH ASDIRECTED PRN PRN Reason: Keep Vein Open Discontinued Medications Hydroxyzine HCl (Vistaril) 50 mg IM ONETIME ONE Stop: 01/10/17 20:35 Last Admin: 01/10/17 21:45 Dose: 50 mg Hydroxyzine HCl (Vistaril) 25 mg IM ONETIME ONE Stop: 01/10/17 21:46 Last Admin: 01/11/17 00:11 Dose: Not Given Cefoxitin Sodium 2 gm/ Premix 50 mls @ 100 mls/hr IV ONETIME ONE Stop: 01/10/17 21:24 Last Admin: 01/10/17 21:32 Dose: 100 mls/hr Nitrofurantoin Macrocrystals (Macrobid) 100 mg PO ONETIME ONE Stop: 01/10/17 19:49 Last Admin: 01/10/17 21:32 Dose: Not Given Ondansetron HCl (Zofran) 4 mg IVPUSH Q4H PRN PRN Reason: Nausea/Vomiting Last Admin: 01/10/17 18:21 Dose: 4 mg *Q Meaningful Use (DIS) - VTE *Q VTE Criteria *Q: - Stroke *Q Stroke Criteria *Q: - AMI *Q AMI Criteria *Q:
[2017-01-11] MEDS: Pantoprazole 40 MG Vial IVPUSH SCH (08:49)
--- NOTE | 2017-01-11 10:12 | US ---
Limited abdominal ultrasound: Multiple real-time images of the upper right abdomen were obtained. Comparison: No previous exam. Liver shows no focal parenchymal abnormality. Gallbladder shows no gallstones. No gallbladder wall thickening or biliary duct dilatation is seen. Right kidney shows mild hydronephrosis most likely due to hydronephrosis of . Right kidney measures 11.9 cm in length. Pancreas appears within normal limits. Impression: 1. Mild hydronephrosis of the right kidney most likely representing hydronephrosis of . 2. No additional abnormality is seen on right upper quadrant abdominal ultrasound. Diagnostic code #2
== END 2017-01-11 09:20 | disposition home or self-care (01) ==
LOC: JD.OBCHECK 17:22 → JD.OB 17:22 → JD.OBCHECK 20:50 → JD.OB 20:57
PROVIDERS: ADMIT Obstetrics & Gynecology; ATTEND Obstetrics & Gynecology
DX: O21.2 Late vomiting of pregnancy (principal); R82.71 Bacteriuria; O99.013 Anemia complicating pregnancy, third trimester; Z3A.35 35 weeks gestation of pregnancy; Z79.899 Other long term (current) drug therapy; Z87.891 Personal history of nicotine dependence
CPT/HCPCS: 36415; 59025; 76705; 80053; 81001; 85025; 87086; 96361; 96365; 96372; 96375; 96376; C9113; G0378; J0694; J2405; J3410; J7042; J7120

== ENCOUNTER 2017-01-30 02:44 | Inpatient (IN) | payer MEDICAID ==
[2017-01-30] MEDS ORDERED: Lidocaine 1% 50 ML MDV INJECT ONE (03:28)
[2017-01-30] MEDS ORDERED: Sodium Chloride 0.9% 10 ML Syringe FLUSH PRN (03:28)
[2017-01-30] MEDS ORDERED: Oxytocin/Lactated Ringers 10 UNIT/1,000 ML BAG IV SCH ×2 (03:30→08:15)
[2017-01-30] MEDS: Lactated Ringers 1,000 ML IV SCH ×4 (03:37→12:28)
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
[2017-01-30] MEDS ORDERED: ePHEDrine 50 MG/ML SDV IVPUSH PRN (05:19)
[2017-01-30] MEDS ORDERED: diphenhydrAMINE 50 MG/ML SDV IVPUSH PRN (05:19)
[2017-01-30] MEDS ORDERED: fentaNYL 100 MCG/2 ML SDV EPIDUR PRN (05:19)
[2017-01-30] MEDS: Bupivacaine/fentaNYL/NS 100 ML Bag EPIDUR SCH ×2 (05:46→13:07)
--- NOTE | 2017-01-30 05:51 | PCM.PREANE ---
Preanesthetic Assessment - Anesthesia/Transfusion/Family Hx Anesthesia History: Prior Anesthesia Without Reaction Family History of Anesthesia Reaction: No Transfusion History: No Prior Transfusion(s) - Review of Systems General: No Symptoms Pulmonary: No Symptoms Cardiovascular: No Symptoms Gastrointestinal: No Symptoms Neurological: No Symptoms Other: Reports: None - Physical Assessment Pulse: 83 O2 Sat by Pulse Oximetry: 100 Respiratory Rate: 16 Blood Pressure: 126/45 Temperature: 36.8 C Vital Signs: Last Vital Signs Temp 36.6 C 01/30/17 03:35 Pulse 80 01/30/17 03:35 Resp 16 01/30/17 03:35 BP 119/79 01/30/17 03:35 Pulse Ox 100 01/30/17 03:35 Height: 1.69 m Weight: 87.317 kg ASA Class: 2 Mental Status: Alert & Oriented x3 Airway Class: Mallampati = 1 Dentition: Reports: Normal Dentition Thyro-Mental Finger Breadths: 3 Mouth Opening Finger Breadths: 3 ROM/Head Extension: Full Lungs: Clear to Auscultation, Normal Respiratory Effort Cardiovascular: Regular Rate, Regular Rhythm - Lab Values: Laboratory Last Values WBC 7.44 K/mm3 (3.98-10.04) 01/30/17 03:35 RBC 3.37 M/mm3 (3.98-5.22) L 01/30/17 03:35 Hgb 10.1 gm/L (11.2-15.7) L 01/30/17 03:35 Hct 30.3 % (34.1-44.9) L 01/30/17 03:35 MCV 89.9 fl (79.4-94.8) 01/30/17 03:35 MCH 30.0 pg (25.6-32.2) 01/30/17 03:35 MCHC 33.3 g/dl (32.2-35.5) 01/30/17 03:35 RDW Std Deviation 43.8 fL (36.4-46.3) 01/30/17 03:35 Plt Count 138 K/mm3 (182-369) L 01/30/17 03:35 MPV 12.2 fl (9.4-12.3) 01/30/17 03:35 Neut % (Auto) 71.5 % (34.0-71.1) H 01/30/17 03:35 Lymph % (Auto) 21.4 % (19.3-51.7) 01/30/17 03:35 [place] % (Auto) 5.2 % (4.7-12.5) 01/30/17 03:35 Eos % (Auto) 1.3 (0.7-5.8) 01/30/17 03:35 Baso % (Auto) 0.3 % (0.1-1.2) 01/30/17 03:35 Neut # (Auto) 5.32 K/mm3 (1.56-6.13) 01/30/17 03:35 Lymph # (Auto) 1.59 K/mm3 (1.18-3.74) 01/30/17 03:35 [place] # (Auto) 0.39 K/mm3 (0.24-0.36) H 01/30/17 03:35 Eos # (Auto) 0.10 K/mm3 (0.04-0.36) 01/30/17 03:35 Baso # (Auto) 0.02 K/mm3 (0.01-0.08) 01/30/17 03:35 - Allergies Allergies/Adverse Reactions: Allergies Allergy/AdvReac Type Severity Reaction Status Date / Time No Known Allergies Allergy Verified 10/01/16 19:56 - Anesthesia Plan Pre-Op Medication Ordered: None - Acknowledgements Anesthesia Type Planned: Epidural Pt an Appropriate Candidate for the Planned Anesthesia: Yes Alternatives and Risks of Anesthesia Discussed w Pt/Guardian: Yes Pt/Guardian Understands and Agrees with Anesthesia Plan: Yes PreAnesthesia Questionnaire - Past Health History Medical/Surgical History: Denies Medical/Surgical History Gastrointestinal History: Reports: GERD Genitourinary History: Reports: UTI, Recurrent, Other (See Below) Other Genitourinary History: states she was admitted a few months ago for kidney inffention [employer] History: Reports: Hematologic History: Reports: Anemia - Infectious Disease History Infectious Disease History: Reports: Chicken Pox, Shingles - SUBSTANCE USE Smoking Status *Q: Former Smoker Tobacco Use Within Last Twelve Months: Cigarettes Second Hand Smoke Exposure: Yes Days Per Week of Alcohol Use: 0 Recreational Drug Use History: No - HOME MEDS Home Medications: Home Meds Vit #108/Iron/FA [ One Tablet] 1 tab PO DAILY 07/08/16 [History ] Acetaminophen [Tylenol] 650 mg PO Q6H PRN #0 tablet 07/10/16 [Rx] Pantoprazole Sodium [Protonix] 20 mg PO DAILY #30 tablet. 01/11/17 [Rx] Cyclobenzaprine [Flexeril] 5 mg PO BEDTIME 01/30/17 [History] Ferrous Sulfate [Iron] 325 mg PO TID 01/30/17 [History] - CURRENT (IN HOUSE) MEDS Current Meds: Current Medications Diphenhydramine HCl (Benadryl) 25 mg IVPUSH Q6H PRN PRN Reason: Itching Ephedrine Sulfate (Ephedrine Sulfate) 5 mg IVPUSH ASDIRECTED PRN PRN Reason: HYPOTENTSION Fentanyl (Sublimaze) 100 mcg EPIDUR Q3H PRN PRN Reason: PAIN Last Admin: 01/30/17 05:45 Dose: 100 mcg Fentanyl/Bupivacaine HCl (Fentanyl/Bupivacaine/Ns 2 Mcg-0.125% 100 Ml) 100 ml EPIDUR ASDIRECTED [facility] Last Admin: 01/30/17 05:46 Dose: 100 ml Lactated Ringer's (Ringers, Lactated) 1,000 mls @ 100 mls/hr IV ASDIRECTED ETTA Last Admin: 01/30/17 05:33 Dose: 250 mls/hr Oxytocin/Lactated Ringer's (Pitocin In Lr 10 Units/1,000 Ml) 10 unit in 1,000 mls @ 100 mls/hr IV .CONTINUOUS [facility] Pneumococcal Polyvalent Vaccine (Pneumovax 23) 0.5 ml SUBCUT .ONCE ONE Stop: 01/31/17 04:23 Sodium Chloride (Saline Flush) 10 ml FLUSH ASDIRECTED PRN PRN Reason: Keep Vein Open Discontinued Medications Lidocaine HCl (Xylocaine 1%) 10 ml INJECT ONETIME ONE Stop: 01/30/17 03:29
--- NOTE | 2017-01-30 18:27 | PCM.SN ---
- Free Text/Narrative Note: Jessica is a 36-year-old 3 now para 2012 white female who had spontaneous rupture memories at approximately 0015 hours on 01/30/2017. She is admitted to labor and delivery in early labor. She progressed slowly. Contraction pattern was less than optimal and patient was augmented with Pitocin. She went to complete cervical dilation and delivered a viable, 6 lbs. 6 oz. (2880 g) male at 1615 hrs. on 01/30/2017.. Apgars 8 and 9, was 20.0 inches in length and was vibrant upon delivery. Baby delivered in right occiput anterior position and was placed onto the abdomen. The cord was clamped 2 and cut by the father. Cord blood was obtained. The nuchal cord was found to have 3 vessels. The patient was noted to have a very superficial second-degree laceration which was repaired in a routine fashion with 3-0 Monocryl. Patient had an epidural in place which was adequate for anesthesia for the laceration repair. She received Pitocin after delivery of the baby to facilitate uterine tone and slow bleeding. Patient had approximately 100 mL blood loss. Plans to bottlefeed. Condition: Good
[2017-01-30] MEDS ORDERED: Witch Hazel Medicated Pads 100/Jar TOP PRN (18:45)
[2017-01-30] MEDS ORDERED: Acetaminophen 325 MG Tab PO PRN (18:45)
[2017-01-30] MEDS ORDERED: Docusate Sodium 100 MG Cap PO PRN (18:45)
[2017-01-30] MEDS ORDERED: Lanolin 100% Cream 7 GM Tube TOP PRN (18:45)
[2017-01-30] MEDS ORDERED: Benzocaine/Menthol 20%-0.5% Spray 56 GM Canister TOP PRN (18:45)
[2017-01-30] MEDS: Ibuprofen 600 MG Tab PO PRN (19:35)
[2017-01-30] MEDS ORDERED: Bupivacaine 0.25% 10 ML SDV ONE (22:22)
[2017-01-31] MEDS: Ibuprofen 600 MG Tab PO PRN ×4 (01:57→15:07)
[2017-01-31] MEDS ORDERED: Pneumococcal Polyvalent-23 Vaccine 0.5 ML SDV SUBCUT ONE (04:22)
--- NOTE | 2017-01-31 10:27 | PCM48HPAN ---
Post Anesthesia Note - EVALUATION WITHIN 48HRS OF ANESTHETIC Vital Signs in Normal Range: Yes Patient Participated in Evaluation: Yes Respiratory Function Stable: Yes Airway Patent: Yes Cardiovascular Function Stable: Yes Hydration Status Stable: Yes Pain Control Satisfactory: Yes Nausea and Vomiting Control Satisfactory: Yes Mental Status Recovered: Yes
[2017-01-31 11:38] VITALS: BP 111/66
--- NOTE | 2017-01-31 19:31 | PCM.DCSUM1 ---
Discharge Summary - Hospital Course Free Text/Narrative:: Jessica is a 36-year-old 3 now para 2012 white female who had spontaneous rupture memories at approximately 0015 hours on 01/30/2017. She is admitted to labor and delivery in early labor. She progressed slowly. Contraction pattern was less than optimal and patient was augmented with Pitocin. She went to complete cervical dilation and delivered a viable, 6 lbs. 6 oz. (2880 g) male at 1615 hrs. on 01/30/2017.. Apgars 8 and 9, was 20.0 inches in length and was vibrant upon delivery. Baby delivered in right occiput anterior position and was placed onto the abdomen. The cord was clamped 2 and cut by the father. Cord blood was obtained. The nuchal cord was found to have 3 vessels. The patient was noted to have a very superficial second-degree laceration which was repaired in a routine fashion with 3-0 Monocryl. Patient had an epidural in place which was adequate for anesthesia for the laceration repair. She received Pitocin after delivery of the baby to facilitate uterine tone and slow bleeding. Patient had approximately 100 mL blood loss. Plans to bottlefeed. patient's done well. She is bottle feeding. Ambulating well, minimal lochia, patient desires to go home. - Discharge Data Discharge Date: 01/31/17 Discharge Disposition: Home, Self-Care 01 Condition: Good - Patient Instructions Diet: Regular Diet as Tolerated Activity: As Tolerated (No intercourse or tampons until bleeding resolves) Driving: May Drive Today Showering/Bathing: May Shower (May take a bath) Notify Provider of: Fever, Increased Pain, Swelling and Redness, Nausea and/or Vomiting - Discharge Plan Home Medications: Home Meds Vit #108/Iron/FA [ One Tablet] 1 tab PO DAILY 07/08/16 [History ] Acetaminophen [Tylenol] 650 mg PO Q6H PRN #0 tablet 07/10/16 [Rx] Pantoprazole Sodium [Protonix] 20 mg PO DAILY #30 tablet. 01/11/17 [Rx] Cyclobenzaprine [Flexeril] 5 mg PO BEDTIME 01/30/17 [History] Ferrous Sulfate [Iron] 325 mg PO TID 01/30/17 [History] Ibuprofen [IJD: Ibuprofen] 600 mg PO Q4H PRN #30 tablet 01/31/17 [Rx] Patient Handouts: Smoking Cessation, Tips for Success, [id number] Referrals: Sd Fleming MD [Physician] - (Return to clinic-Dr. Fleming-[facility]-6 weeks.) - Discharge Summary/Plan Comment DC Time >30 min.: No Discharge Summary/Plan Comment: Discharge instructions: 1. Discharge home 2. Regular, high fiber diet. 3. Routine precautions given concern increased pain, bleeding, temperature, signs/symptoms DVT/PE. 4. Medications per home medication was printed, discussed this and given to the patient. 5. Return to clinic as above. Diagnosis: 38 week intrauterine pregnancydelivered Condition: Good - Patient Data Vitals - Most Recent: Last Vital Signs Temp 36.8 C 01/31/17 08:16 Pulse 84 01/31/17 08:16 Resp 12 01/31/17 08:16 BP 114/70 01/31/17 08:16 Pulse Ox 100 01/31/17 08:13 Weight - Most Recent: 87.317 kg I&O - Last 24 hours: Intake & Output 01/31/17 01/31/17 01/31/17 06:59 14:59 22:59 Intake Total 120 Balance 120 Lab Results - Last 24 hrs: Laboratory Results - last 24 hr 01/30/17 01/31/17 Range/Units 21:05 07:06 WBC 8.47 (3.98-10.04) K/mm3 RBC 2.91 L (3.98-5.22) M/mm3 Hgb 8.7 L (11.2-15.7) gm/L Hct 26.3 L (34.1-44.9) % MCV 90.4 (79.4-94.8) fl MCH 29.9 (25.6-32.2) pg MCHC 33.1 (32.2-35.5) g/dl RDW Std Deviation 43.7 (36.4-46.3) fL Plt Count 113 L (182-369) K/mm3 MPV 11.5 (9.4-12.3) fl Blood Type A NEGATIVE Gel Antibody Screen Positive Screen 1 ros/5 flds - neg Rhogam Indicated Yes, baby rh pos H Med Orders - Current: Current Medications Acetaminophen (Tylenol) 650 mg PO Q4H PRN PRN Reason: mild pain or fever Benzocaine/Menthol (Dermoplast Pain Relief [place]) 0 gm TOP ASDIRECTED PRN PRN Reason: Perineal Comfort Measure Last Admin: 01/30/17 19:33 Dose: 1 canister Docusate Sodium (Colace) 100 mg PO BID PRN PRN Reason: Constipation Last Admin: 01/30/17 19:34 Dose: 100 mg Emollient Ointment (Lansinoh Hpa) 0 gm TOP ASDIRECTED PRN PRN Reason: Sore Nipples Ibuprofen (Motrin) 600 mg PO Q4H PRN PRN Reason: Mild pain or fever Last Admin: 01/31/17 15:07 Dose: 600 mg Witch Gely (Tucks) 1 pad TOP ASDIRECTED PRN PRN Reason: Hemorrhoid pain Last Admin: 01/30/17 19:34 Dose: 1 tub Discontinued Medications Bupivacaine HCl (Sensorcaine-Mpf 0.25%) 10 ml .ROUTE .[facility] ONE Stop: 01/30/17 22:23 Diphenhydramine HCl (Benadryl) 25 mg IVPUSH Q6H PRN PRN Reason: Itching Ephedrine Sulfate (Ephedrine Sulfate) 5 mg IVPUSH ASDIRECTED PRN PRN Reason: HYPOTENTSION Fentanyl (Sublimaze) 100 mcg EPIDUR Q3H PRN PRN Reason: PAIN Last Admin: 01/30/17 05:45 Dose: 100 mcg Fentanyl/Bupivacaine HCl (Fentanyl/Bupivacaine/Ns 2 Mcg-0.125% 100 Ml) 100 ml EPIDUR ASDIRECTED ETTA Last Admin: 01/30/17 13:07 Dose: 100 ml Lactated Ringer's (Ringers, Lactated) 1,000 mls @ 100 mls/hr IV ASDIRECTED ETTA Last Admin: 01/30/17 12:28 Dose: 999 mls/hr Oxytocin/Lactated Ringer's (Pitocin In Lr 10 Units/1,000 Ml) 10 unit in 1,000 mls @ 100 mls/hr IV .CONTINUOUS ETTA Oxytocin/Lactated Ringer's (Pitocin In Lr 10 Units/1,000 Ml) 10 unit in 1,000 mls @ 12 mls/hr IV TITRATE ETTA; 2 MUNITS/MIN PRN Reason: Protocol Last Titration: 01/30/17 15:33 Dose: 10 munits/min, 60 mls/hr Lidocaine HCl (Xylocaine 1%) 10 ml INJECT ONETIME ONE Stop: 01/30/17 03:29 Pneumococcal Polyvalent Vaccine (Pneumovax 23) 0.5 ml SUBCUT .ONCE ONE Stop: 01/31/17 04:23 Last Admin: 01/31/17 08:03 Dose: 0.5 ml Sodium Chloride (Saline Flush) 10 ml FLUSH ASDIRECTED PRN PRN Reason: Keep Vein Open *Q Meaningful Use (DIS) - VTE *Q VTE Criteria *Q: - Stroke *Q Stroke Criteria *Q: - AMI *Q AMI Criteria *Q:
== END 2017-01-31 19:45 | disposition home or self-care (01) | DRG 775 ==
LOC: JD.OBCHECK 02:44 → JD.OB 02:45 → JD.OBCHECK 03:35 → OBSVTOIN 16:15 → JD.OB 16:15
PROVIDERS: ADMIT Obstetrics & Gynecology; ATTEND Obstetrics & Gynecology
PROC: 10E0XZZ Delivery of Products of Conception, External Approach (ICD-10-PCS; principal; 2017-01-30)
PROC: 0HQ9XZZ Repair Perineum Skin, External Approach (ICD-10-PCS; 2017-01-30)
PROC: 00HU33Z Insertion of Infusion Device into Spinal Canal, Percutaneous Approach (ICD-10-PCS; 2017-01-30)
PROC: 3E0234Z Introduction of Serum, Toxoid and Vaccine into Muscle, Percutaneous Approach (ICD-10-PCS; 2017-01-31)
DX: O42.02 Full-term premature rupture of membranes, onset of labor within 24 hours of rupture (principal); O70.0 First degree perineal laceration during delivery; O09.523 Supervision of elderly multigravida, third trimester; Z3A.38 38 weeks gestation of pregnancy; Z37.0 Single live birth; Z23 Encounter for immunization
CPT/HCPCS: 01967; 36415; 85025; 85027; 85461; 86850; 86870; 86900; 86901; 90732; A9270-GY; J2590; J2790; J3010; J7120

== ENCOUNTER 2018-07-06 18:36 | Inpatient (IN) | payer OTHER ==
[2018-07-06] MEDS ORDERED: Sodium Chloride 0.9% 10 ML Syringe FLUSH PRN (19:33)
[2018-07-06] MEDS ORDERED: Ondansetron 4 MG/2 ML SDV IVPUSH PRN ×2 (19:33→21:00)
[2018-07-06] MEDS ORDERED: Nalbuphine 20 MG/ML 1 ML Syringe IVPUSH PRN (19:33)
[2018-07-06] MEDS ORDERED: Oxytocin/Lactated Ringers 10 UNIT/1,000 ML BAG IV SCH (19:45)
[2018-07-06] MEDS: Lactated Ringers 1,000 ML IV SCH ×3 (19:50→22:42)
[2018-07-06] MEDS ORDERED: Ampicillin 2 GM in Sodium Chloride 0.9% 100 ML IV ONE (20:00)
[2018-07-06] MEDS ORDERED: fentaNYL 100 MCG/2 ML SDV EPIDUR PRN (21:00)
[2018-07-06] MEDS ORDERED: Bupivacaine/fentaNYL/NS 100 ML Bag EPIDUR SCH (21:00)
[2018-07-06] MEDS ORDERED: ePHEDrine 50 MG/ML SDV IVPUSH PRN (21:00)
--- NOTE | 2018-07-06 21:03 | PCM.PREANE ---
Preanesthetic Assessment - Anesthesia/Transfusion/Family Hx Anesthesia History: Prior Anesthesia Without Reaction Family History of Anesthesia Reaction: No Transfusion History: Prior Transfusion Without Reaction Intubation History: Unknown - Review of Systems General: No Symptoms Pulmonary: No Symptoms (Quit smoking January 2018) Cardiovascular: No Symptoms Gastrointestinal: No Symptoms (GERD), Constipation Neurological: No Symptoms Other: Reports: None (Anemia), Easy Bruising - Physical Assessment NPO Status Date: 07/06/18 NPO Status Time: 13:30 Pulse: 85 O2 Sat by Pulse Oximetry: 99 Respiratory Rate: 18 Blood Pressure: 118/69 Temperature: 36.7 C Vital Signs: Last Vital Signs Temp 36.7 C 07/06/18 18:45 Pulse 98 07/06/18 18:45 Resp 18 07/06/18 18:45 BP 118/69 07/06/18 18:45 Pulse Ox Height: 1.68 m Weight: 92.079 kg ASA Class: 2 Mental Status: Alert & Oriented x3 Airway Class: Mallampati = 1 Dentition: Reports: Normal Dentition, Caries Thyro-Mental Finger Breadths: 3 Mouth Opening Finger Breadths: 3 ROM/Head Extension: Full Lungs: Clear to Auscultation, Normal Respiratory Effort Cardiovascular: Regular Rate, Regular Rhythm, No Murmurs - Lab Values: Laboratory Last Values WBC 7.84 K/mm3 (3.98-10.04) 07/06/18 17:55 RBC 3.42 M/mm3 (3.98-5.22) L 07/06/18 17:55 Hgb 9.5 gm/L (11.2-15.7) L 07/06/18 17:55 Hct 29.3 % (34.1-44.9) L 07/06/18 17:55 MCV 85.7 fl (79.4-94.8) 07/06/18 17:55 MCH 27.8 pg (25.6-32.2) 07/06/18 17:55 MCHC 32.4 g/dl (32.2-35.5) 07/06/18 17:55 RDW Std Deviation 42.3 fL (36.4-46.3) 07/06/18 17:55 Plt Count 142 K/mm3 (182-369) L 07/06/18 17:55 MPV 11.1 fl (9.4-12.3) 07/06/18 17:55 Neut % (Auto) 75.3 % (34.0-71.1) H 07/06/18 17:55 Lymph % (Auto) 17.7 % (19.3-51.7) L 07/06/18 17:55 Hunt % (Auto) 5.1 % (4.7-12.5) 07/06/18 17:55 Eos % (Auto) 1.5 (0.7-5.8) 07/06/18 17:55 Baso % (Auto) 0.1 % (0.1-1.2) 07/06/18 17:55 Neut # (Auto) 5.90 K/mm3 (1.56-6.13) 07/06/18 17:55 Lymph # (Auto) 1.39 K/mm3 (1.18-3.74) 07/06/18 17:55 Hunt # (Auto) 0.40 K/mm3 (0.24-0.36) H 07/06/18 17:55 Eos # (Auto) 0.12 K/mm3 (0.04-0.36) 07/06/18 17:55 Baso # (Auto) 0.01 K/mm3 (0.01-0.08) 07/06/18 17:55 Membrane Rupture Positive H 07/06/18 19:00 Above labs reviewed and noted and within acceptable ranges to proceed with epidural. - Allergies Allergies/Adverse Reactions: Allergies Allergy/AdvReac Type Severity Reaction Status Date / Time No Known Allergies Allergy Verified 07/06/18 18:46 - Anesthesia Plan Pre-Op Medication Ordered: None - Acknowledgements Anesthesia Type Planned: Epidural Pt an Appropriate Candidate for the Planned Anesthesia: Yes Alternatives and Risks of Anesthesia Discussed w Pt/Guardian: Yes Pt/Guardian Understands and Agrees with Anesthesia Plan: Yes PreAnesthesia Questionnaire - Past Health History Medical/Surgical History: Denies Medical/Surgical History HEENT History: Reports: None Other Cardiovascular History: Heart murmur Respiratory History: Reports: None Other Respiratory History: Orthopnea but denies SOB otherwise Gastrointestinal History: Reports: GERD Other Gastrointestinal History: Constipation Genitourinary History: Reports: UTI, Recurrent, Other (See Below) Other Genitourinary History: states she was admitted a few months ago for kidney inffention (UTI) [employer] History: Reports: Other OB/BYN History: 10/07/2017 Endocrine/Metabolic History: Reports: Obesity/BMI 30+ Hematologic History: Reports: Anemia, Blood Transfusion(s) Other Hematologic History: Pt thinks she had a blood transfusion after her first child 14 years ago but cannot recall for certain. - Infectious Disease History Infectious Disease History: Reports: Chicken Pox, Shingles - SUBSTANCE USE Smoking Status *Q: Former Smoker Tobacco Use Within Last Twelve Months: Cigarettes Recreational Drug Use History: No - HOME MEDS Home Medications: Home Meds Vit #108/Iron/FA [ One Tablet] 1 tab PO DAILY 07/08/16 [History ] Ferrous Sulfate [Iron] 325 mg PO TID 01/30/17 [History] NIFEdipine [Procardia] 10 mg PO Q6H #120 cap 05/04/18 [Rx] Nitrofurantoin Monohyd/M-Cryst [Macrobid 100 mg Capsule] 100 mg PO BID 06/14/18 [History] - CURRENT (IN HOUSE) MEDS Current Meds: Current Medications Ephedrine Sulfate (Ephedrine Sulfate) 5 mg IVPUSH ASDIRECTED PRN PRN Reason: Hypotension Fentanyl (Sublimaze) 100 mcg EPIDUR Q3H PRN PRN Reason: Pain Fentanyl/Bupivacaine HCl (Fentanyl/Bupivacaine/Ns 2 Mcg-0.125% 100 Ml) 100 ml EPIDUR ASDIRECTED [facility] Ampicillin Sodium 1 gm/ Sodium (Chloride) 100 mls @ 200 mls/hr IV Q4H ETTA Lactated Ringer's (Ringers, Lactated) 1,000 mls @ 100 mls/hr IV ASDIRECTED [facility] Last Admin: 07/06/18 19:50 Dose: 100 mls/hr Oxytocin/Lactated Ringer's (Pitocin In Lr 10 Units/1,000 Ml) 10 unit in 1,000 mls @ 500 mls/hr IV .CONTINUOUS ETTA Nalbuphine HCl (Nubain) 10 mg IVPUSH Q2H PRN PRN Reason: pain Ondansetron HCl (Zofran) 4 mg IVPUSH Q4H PRN PRN Reason: Nausea/Vomiting Ondansetron HCl (Zofran) 4 mg IVPUSH ONETIME PRN PRN Reason: Nausea/Vomiting Sodium Chloride (Saline Flush) 10 ml FLUSH ASDIRECTED PRN PRN Reason: Keep Vein Open Discontinued Medications Ampicillin Sodium 2 gm/ Sodium (Chloride) 100 mls @ 200 mls/hr IV ONETIME ONE Stop: 07/06/18 20:29 Last Admin: 07/06/18 19:50 Dose: 200 mls/hr
--- NOTE | 2018-07-06 22:45 | PCM.LDHP ---
L&D History of Present Illness - General Date of Service: 07/06/18 Admit Problem/Dx: Patient Status Order with Admit Dx/Problem 07/06/18 19:33 Patient Status [ADT] Routine Admission Diagnosis/Problem Admission Diagnosis/Problem Source of Information: Patient History Limitations: Reports: No Limitations - History of Present Illness Introduction:: Jessica Vaughan is a 37 year old at 38 weeks 6 days by LMP consistent with 9 week ultrasound ([facility]NY 07/14/2018) who presents with spontaneous rupture of membranes. She reports that when she was in the shower this afternoon at around 5 PM she had felt a gush of fluid based on the different temperature compared to the water of the shower. She did not see any abnormal color in the water or any blood but could not be completely certain. She states that after this happened she had no additional leaking of fluid. Her contractions did start to become more painful and regular and there were certain, on every couple of minutes. She states that they're getting to an 8/10 on a pain scale. She reports good movement. Timing/Duration: Reports: sudden onset (Sudden gush of fluid at approximately 1700 no additional fluid afterwards), intermittent (Contractions every couple of minutes that were increasing in pain compared to normal) Location, : Reports: Lower back, Pelvic, Uterus Quality: Reports: Ache, Throbbing Severity: Severe Pain Score: 8 Improves with: Reports: None Worsens with: Reports: None Associated Symptoms: Reports: vaginal fluid, moderate amount. Denies: vaginal bleeding, vaginal discharge Present Illness Comments:: Jessica Vaughan is a 37-year-old at 38 weeks 6 days by LMP consistent with 9 week ultrasound (ANNY 07/14/2018) who is admitted with spontaneous rupture of membranes confirmed with positive Amnisure. She has had routine care with Dr. Boyd starting at 17 weeks gestational age. Review of her labs shows A- blood type with negative antibody screen. Her hematocrit was 34.0 with hemoglobin of 11.6 and platelets of 181 on 02/06/2018. She is rubella immune. Her RPR, hepatitis B surface antigen and HIV were all negative. Her gonorrhea and chlamydia tests were both negative. Her urine culture was negative for urinary tract infection initially. She had been diagnosed with a Lactobacillus urinary tract infection was treated with Keflex but had continued symptoms and was then treated with Rocephin 1 g IM and then transitioned to Macrobid 100 mg twice a day for 5 days. Patient had fallen at around 21 weeks gestational age and she was given RhoGAM for possible maternal bleeding as a result of the fall. Her anatomy ultrasound was normal on 03/06/2018. Her 1 hour glucose test was normal at 79. Her repeat hematocrit was 30.9 with hemoglobin of 10.2 and platelets of 150. She was started on iron supplementation 3 times daily. She had repeat antibody screen completed at 34 weeks gestational age and was transfused with additional dose of RhoGAM. Patient had urine culture on 06/04/2018 that showed group B strep bacteria present. She had multiple BPP exams secondary to recurrent bleeding and contractions in late that were all normal. The 2 most recent BPP ultrasound exams have showed a stable dilated upper pole calyx in the right kidney. Her has been complicated by: * Rh- status and has received 2 doses of RhoGAM secondary to a fall at 21 weeks and again at 34 weeks to cover for the last couple weeks it would not be covered by the initial dose. * GBS bacteriuria * Dilated upper pole calyx in the right kidney. It was stable on the most recent BPP ultrasound on 07/05/2018 * Premature contractions and was given a course of betamethasone at 29 weeks gestational age due to irregular and infrequent contractions. * Anemia in on iron supplementation 3 times daily * Advanced maternal age with normal genetic testing * Recurrent UTIs in and was to be on nightly Macrobid but has not taken for several days. - Related Data Allergies/Adverse Reactions: Allergies Allergy/AdvReac Type Severity Reaction Status Date / Time No Known Allergies Allergy Verified 07/06/18 18:46 Home Medications: Home Meds Vit #108/Iron/FA [ One Tablet] 1 tab PO DAILY 07/08/16 [History ] Ferrous Sulfate [Iron] 325 mg PO TID 01/30/17 [History] NIFEdipine [Procardia] 10 mg PO Q6H #120 cap 05/04/18 [Rx] Nitrofurantoin Monohyd/M-Cryst [Macrobid 100 mg Capsule] 100 mg PO BID 06/14/18 [History] Past Medical History - Past Health History Medical/Surgical History: Denies Medical/Surgical History HEENT History: Reports: None Other Cardiovascular History: Heart murmur Respiratory History: Reports: None Other Respiratory History: Orthopnea but denies SOB otherwise Gastrointestinal History: Reports: GERD Other Gastrointestinal History: Constipation Genitourinary History: Reports: UTI, Recurrent, Other (See Below) Other Genitourinary History: states she was admitted a few months ago for kidney inffention (UTI) [employer] History: Reports: : 3 Para: 2 Other OB/BYN History: 10/07/2017 Endocrine/Metabolic History: Reports: Obesity/BMI 30+ Hematologic History: Reports: Anemia, Blood Transfusion(s) Other Hematologic History: Pt thinks she had a blood transfusion after her first child 14 years ago but cannot recall for certain. - Infectious Disease History Infectious Disease History: Reports: Chicken Pox, Shingles - Past Surgical History Female Surgical History: Reports: Cervical Conization (2009) Social & Family History - Family History Family Medical History: Noncontributory - Tobacco Use Smoking Status *Q: Former Smoker Years of Tobacco use: 20 Packs/Tins Daily: 1 Used Tobacco, but Quit: Yes Month/Year Tobacco Last Used: 03/20 - Tobacco Core Measures Tobacco Use/Smoking Within Last 30 Days: No Smokeless Tobacco Use in Last 30 Days: No - Caffeine Use Caffeine Use: Reports: Soda Other Caffeine Use: 1 cup daily Caffeine Use Comment: drinks coffee daily - Alcohol Use Alcohol Use History: No - Recreational Drug Use Recreational Drug Use: No - Living Situation & Occupation Occupation: Unemployed H&P Review of Systems - Review of Systems: Review Of Systems: See Below General: Denies: Fever, Chills, Malaise, Weakness, Fatigue HEENT: Denies: Headaches, Rhinitis, Post Nasal Drip, Sinus Congestion, Sore Throat, Visual Changes Pulmonary: Denies: Shortness of Breath, Wheezing, Pleuritic Chest Pain, Cough Cardiovascular: Denies: Chest Pain, Palpitations, Orthopnea Gastrointestinal: Reports: Abdominal Pain (Irregular abdominal pains thought to be related to gallbladder dysfunction), Constipation (With iron supplementation) . Denies: Diarrhea, Nausea, Vomiting Genitourinary: Denies: Dysuria, Frequency, Burning, Pain, Urgency Musculoskeletal: Reports: Back Pain (And hip pain). Denies: Joint Pain, Muscle Pain Skin: Denies: Rash, Lesions Psychiatric: Denies: Depression, Anxiety Hematologic/Lymphatic: Reports: Anemia. Denies: Easy Bleeding, Easy Bruising L&D Exam - Exam Exam: See Below - Vital Signs Vital Signs: Last Vital Signs Temp 36.7 C 07/06/18 21:21 Pulse 85 07/06/18 21:21 Resp 18 07/06/18 21:21 BP 118/69 07/06/18 21:21 Pulse Ox 99 07/06/18 21:21 Weight: 92.079 kg - OB Specific Contraction Duration (sec): 60-75 Contraction Frequency (min): 2-4 Contraction Intensity: Moderate to Strong Movement: Active Heart Tones: Present Heart Tones per Min: 135 (+15 x 15 accelerations, no decelerations) Heart Rate (FHR) Variability: Moderate (6-25 bmp) Presentation: Vertex Estimated Weight: 7.5 pounds by Kelvin's - Reyes Score Reyes Score Cervix Position: Anterior Reyes Score Consistency: Medium Reyes Score Effacement: >80% (80%) Reyes Score Dilation: 3-4 cm (4 cm) Reyes Score Infant's Station: -3 Reyes Score Total: 8 - Exam General: Alert, Oriented HEENT: Conjunctiva Clear, EOMI Neck: Supple, Trachea Midline Lungs: Clear to Auscultation, Normal Respiratory Effort Cardiovascular: Regular Rate, Regular Rhythm GI/Abdominal Exam: Soft, Non-Tender, No Distention, Other (Gravid). No: Guarding, Rigid, Rebound Genitourinary: Normal external exam Back Exam: Normal Inspection, Full Range of Motion Extremities: Normal Inspection, No Pedal Edema Skin: Warm, Dry, Intact Psychiatric: Alert, Normal Affect, Normal Mood - Patient Data Lab Results Last 24 hrs: Laboratory Results - last 24 hr 07/06/18 07/06/18 Range/Units 17:55 19:00 WBC 7.84 (3.98-10.04) K/mm3 RBC 3.42 L (3.98-5.22) M/mm3 Hgb 9.5 L (11.2-15.7) gm/L Hct 29.3 L (34.1-44.9) % MCV 85.7 (79.4-94.8) fl MCH 27.8 (25.6-32.2) pg MCHC 32.4 (32.2-35.5) g/dl RDW Std Deviation 42.3 (36.4-46.3) fL Plt Count 142 L (182-369) K/mm3 MPV 11.1 (9.4-12.3) fl Neut % (Auto) 75.3 H (34.0-71.1) % Lymph % (Auto) 17.7 L (19.3-51.7) % [place] % (Auto) 5.1 (4.7-12.5) % Eos % (Auto) 1.5 (0.7-5.8) Baso % (Auto) 0.1 (0.1-1.2) % Neut # (Auto) 5.90 (1.56-6.13) K/mm3 Lymph # (Auto) 1.39 (1.18-3.74) K/mm3 [place] # (Auto) 0.40 H (0.24-0.36) K/mm3 Eos # (Auto) 0.12 (0.04-0.36) K/mm3 Baso # (Auto) 0.01 (0.01-0.08) K/mm3 Membrane Rupture Positive H Result Diagrams: 07/06/18 17:55 - Problem List (1) 38 weeks gestation of SNOMED Code(s): 95354563 ICD Code: Z3A.38 - 38 WEEKS GESTATION OF Status: Acute Current Visit: Yes (2) GBS bacteriuria SNOMED Code(s): 48377753 ICD Code: R82.71 - BACTERIURIA Status: Acute Current Visit: Yes (3) Rh negative state in antepartum period SNOMED Code(s): 951498288 ICD Code: O09.899 - SUPERVISION OF OTHER HIGH RISK PREGNANCIES, UNSP TRIMESTER; Z67.91 - UNSPECIFIED BLOOD TYPE, RH NEGATIVE Status: Acute Current Visit: Yes (4) AMA (advanced maternal age) multigravida 35+ SNOMED Code(s): 761685270 ICD Code: O09.529 - SUPERVISION OF ELDERLY MULTIGRAVIDA, UNSPECIFIED TRIMESTER Status: Acute Current Visit: Yes (5) Anemia affecting in third trimester SNOMED Code(s): 35435491, 47787375 ICD Code: O99.013 - ANEMIA COMPLICATING , THIRD TRIMESTER Status: Acute Current Visit: No Problem List Initiated/Reviewed/Updated: Yes Orders Last 24hrs: Active Orders 24 hr Category Date Time Status Patient Status [ADT] Routine ADT 07/06/18 19:33 Active Activity as Tolerated [RC] PFP Care 07/06/18 19:33 Active Communication Order [RC] ASDIRECTED Care 07/06/18 19:33 Active Heart Tones [RC] ASDIRECTED Care 07/06/18 19:34 Active Non Stress Test [RC] PER UNIT ROUTINE Care 07/06/18 19:33 Active Notify Provider [RC] ASDIRECTED Care 07/06/18 21:00 Active Notify Provider [RC] PFP Care 07/06/18 19:33 Active Notify Provider [RC] PRN Care 07/06/18 19:33 Active Oxygen Therapy [RC] ASDIRECTED Care 07/06/18 21:00 Active Peripheral IV Care [RC] . DIRECTED Care 07/06/18 19:34 Active Pulse Oximetry [RC] ASDIRECTED Care 07/06/18 21:00 Active Vital Signs [RC] PER UNIT ROUTINE Care 07/06/18 19:33 Active Regular Diet [DIET] Diet 07/06/18 Breakfast Active RAPID PLASMA REAGIN,RPR [CHEM] Routine Lab 07/06/18 17:55 Received Ampicillin 1 gm Med 07/07/18 00:00 Active Sodium Chloride 0.9% [Normal Saline] 100 ml IV Q4H Bupivacaine/fentaNYL/NS [fentaNYL/Bupivacaine/NS 2 MCG- Med 07/06/18 21:00 Active 0.125% 100 ML] 100 ml EPIDUR ASDIRECTED Lactated Ringers [Ringers, Lactated] 1,000 ml Med 07/06/18 19:45 Active IV ASDIRECTED Nalbuphine [Nubain] Med 07/06/18 19:33 Active 10 mg IVPUSH Q2H PRN Ondansetron [Zofran] Med 07/06/18 21:00 Active 4 mg IVPUSH ONETIME PRN Ondansetron [Zofran] Med 07/06/18 19:33 Active 4 mg IVPUSH Q4H PRN Oxytocin [Pitocin] 10 unit Med 07/06/18 22:15 Active Lactated Ringers [Ringers, Lactated] 1,000 ml IV TITRATE Oxytocin/Lactated Ringers [Pitocin in LR 10 Units/1,000 Med 07/06/18 19:45 Active ML] 10 unit in 1,000 ml IV .CONTINUOUS Sodium Chloride 0.9% [Saline Flush] Med 07/06/18 19:33 Active 10 ml FLUSH ASDIRECTED PRN ePHEDrine [ePHEDrine sulfate] Med 07/06/18 21:00 Active 5 mg IVPUSH ASDIRECTED PRN fentaNYL [Sublimaze] Med 07/06/18 21:00 Active 100 mcg EPIDUR Q3H PRN Electronic Heart Tones Ext w TOCO [WOMSER] Oth 07/06/18 19:33 Ordered Routine Electronic Heart Tones Internal [WOMSER] Per Unit Oth 07/06/18 19:33 Ordered Routine Peripheral IV Insertion Adult [OM.PC] Routine Oth 07/06/18 19:33 Ordered Resuscitation Status Routine Resus Stat 07/06/18 19:33 Ordered Medication Orders Ephedrine Sulfate (Ephedrine Sulfate) 5 mg IVPUSH ASDIRECTED PRN PRN Reason: Hypotension Fentanyl (Sublimaze) 100 mcg EPIDUR Q3H PRN PRN Reason: Pain Last Admin: 07/06/18 21:14 Dose: 100 mcg Fentanyl/Bupivacaine HCl (Fentanyl/Bupivacaine/Ns 2 Mcg-0.125% 100 Ml) 100 ml EPIDUR ASDIRECTED ETTA Last Admin: 07/06/18 21:14 Dose: 100 ml Ampicillin Sodium 1 gm/ Sodium (Chloride) 100 mls @ 200 mls/hr IV Q4H ETTA Lactated Ringer's (Ringers, Lactated) 1,000 mls @ 100 mls/hr IV ASDIRECTED ETTA Last Admin: 07/06/18 21:21 Dose: 100 mls/hr Infusion: 07/06/18 21:21 Dose: 100 mls/hr Admin: 07/06/18 19:50 Dose: 100 mls/hr Oxytocin/Lactated Ringer's (Pitocin In Lr 10 Units/1,000 Ml) 10 unit in 1,000 mls @ 500 mls/hr IV .CONTINUOUS [facility] Oxytocin 10 unit/ Lactated (Ringer's) 1,001 mls @ 12.01 mls/hr IV TITRATE ETTA; Protocol Last Admin: 07/06/18 22:23 Dose: 2 munits/min, 12.01 mls/hr Nalbuphine HCl (Nubain) 10 mg IVPUSH Q2H PRN PRN Reason: pain Ondansetron HCl (Zofran) 4 mg IVPUSH Q4H PRN PRN Reason: Nausea/Vomiting Ondansetron HCl (Zofran) 4 mg IVPUSH ONETIME PRN PRN Reason: Nausea/Vomiting Sodium Chloride (Saline Flush) 10 ml FLUSH ASDIRECTED PRN PRN Reason: Keep Vein Open Assessment/Plan Comment:: Refer to observation for spontaneous rupture of membranes Start Pitocin for augmentation of labor Continuous monitoring Place IV and have Lactated Ringer's at 125 ml/hr May have small amounts of regular diet Activity as tolerated Epidural placed for anesthesia Plans to breast-feed after delivery initially but states she will likely transition to bottle feeding Start on ampicillin 2 g now and have 1 g every 4 hours after for GBS prophylaxis Artificial rupture membranes of forebag on exam with return of clear fluid. Mother and baby tolerated well. Anticipate vaginal delivery unless otherwise indicated Mook Cazares M.D. 11:16 PM 07/06/2018
[2018-07-06] MEDS ORDERED: diphenhydrAMINE 50 MG/ML SDV IVPUSH ONE (22:48)
[2018-07-06] MEDS ORDERED: diphenhydrAMINE 50 MG/ML SDV ONE (22:58)
[2018-07-06] MEDS: Ampicillin 1 GM in Sodium Chloride 0.9% 100 ML IV SCH (23:41)
[2018-07-07] MEDS ORDERED: Acetaminophen 325 MG Tab PO ONE (00:18)
[2018-07-07] MEDS: Ampicillin 1 GM in Sodium Chloride 0.9% 100 ML IV SCH (03:58)
[2018-07-07] MEDS: Lactated Ringers 1,000 ML IV SCH (03:59)
[2018-07-07] MEDS ORDERED: diphenhydrAMINE 50 MG/ML SDV ONE (04:31)
[2018-07-07] MEDS ORDERED: diphenhydrAMINE 50 MG/ML SDV IVPUSH ONE (04:39)
--- NOTE | 2018-07-07 06:12 | PCM.DEL ---
L & D Note - General Info Date of Service: 07/07/18 Mother's Due Date: 07/14/18 - Delivery Note Labor: Spontaneous, Augmented by Oxytocin Delivery Outcome: Livebirth Infant Delivery Method: Spontaneous Vaginal Delivery-Single Presentation: Right Occiput Anterior (RUCHI) Nuchal Cord: None Prep: Povidone-Iodine (Betadine Anesthesia Type: Epidural Amniotic Fluid Description: Clear Episiotomy Type: None Laceration: 2nd Degree, Perineal (midline) Suture type: Vicryl Suture size: 4-0 Placenta: Intact, Spontaneous Cord: 3 Vessels Estimated Blood Loss: 200 Resuscitation Needed: No : Bulb Syringe, Stimulated, Warmed, Cameron Used, Warmer Used Provider: Mook Cazares Score 1 min: 7 Score 5 min: 9 Second Stage Interventions: Reports: Pushing Effectively, Pushing, Pulls Own Legs Back, Pushing, Stirrups/Leg Supports Delivery Comments (Free Text/Narrative):: Stage I: Jessica Vaughan was admitted for spontaneous rupture membranes with positive Amnisure test. On admission her cervix was dilated to 3 cm. She was GBS positive bacteriuria and was started on ampicillin. She received a total of 3 doses. She was given an epidural for anesthesia. She was started on Pitocin for augmentation of labor. She had artificial rupture of membranes of a forebag to assist with augmentation. She progressed to complete and pushing. Stage II: On 07/07/2018 she had a normal vaginal delivery of a live female infant at 0543. Apgars of 7 & 9. Weight of 2770 g (6 lbs 2 oz). Length of 20 inches. There was no nuchal cord. Infant was delivered in RUCHI position. The cord was doubly clamped and cut by myself. Infant was placed on mother's abdomen. Stage III: She had a spontaneous delivery of an intact placenta in Cami presentation. Three vessel cord. She was given pitocin and fundal massage. She had a second-degree midline perineal laceration that was repaired with 3-0 Vicryl. Mom and baby were stable to recovery. EBL of 200 mL. Mook Cazares MD 6:11 AM 07/07/2018 - General Info Date of Service: 07/07/18 - Patient Data Vitals - Most Recent: Last Vital Signs Temp 36.7 C 07/06/18 21:21 Pulse 85 07/06/18 21:21 Resp 18 07/06/18 21:21 BP 118/69 07/06/18 21:21 Pulse Ox 99 07/06/18 21:21 Weight - Most Recent: 92.079 kg I&O - Last 24 Hours: Intake & Output 07/06/18 07/06/18 07/07/18 14:59 22:59 06:59 Intake Total 3200 Balance 3200 Lab Results Last 24 Hours: Laboratory Results - last 24 hr 07/06/18 07/06/18 Range/Units 17:55 19:00 WBC 7.84 (3.98-10.04) K/mm3 RBC 3.42 L (3.98-5.22) M/mm3 Hgb 9.5 L (11.2-15.7) gm/L Hct 29.3 L (34.1-44.9) % MCV 85.7 (79.4-94.8) fl MCH 27.8 (25.6-32.2) pg MCHC 32.4 (32.2-35.5) g/dl RDW Std Deviation 42.3 (36.4-46.3) fL Plt Count 142 L (182-369) K/mm3 MPV 11.1 (9.4-12.3) fl Neut % (Auto) 75.3 H (34.0-71.1) % Lymph % (Auto) 17.7 L (19.3-51.7) % [place] % (Auto) 5.1 (4.7-12.5) % Eos % (Auto) 1.5 (0.7-5.8) Baso % (Auto) 0.1 (0.1-1.2) % Neut # (Auto) 5.90 (1.56-6.13) K/mm3 Lymph # (Auto) 1.39 (1.18-3.74) K/mm3 [place] # (Auto) 0.40 H (0.24-0.36) K/mm3 Eos # (Auto) 0.12 (0.04-0.36) K/mm3 Baso # (Auto) 0.01 (0.01-0.08) K/mm3 Membrane Rupture Positive H Med Orders - Current: Current Medications Ephedrine Sulfate (Ephedrine Sulfate) 5 mg IVPUSH ASDIRECTED PRN PRN Reason: Hypotension Fentanyl (Sublimaze) 100 mcg EPIDUR Q3H PRN PRN Reason: Pain Last Admin: 07/06/18 21:14 Dose: 100 mcg Fentanyl/Bupivacaine HCl (Fentanyl/Bupivacaine/Ns 2 Mcg-0.125% 100 Ml) 100 ml EPIDUR ASDIRECTED [facility] Last Admin: 07/06/18 21:14 Dose: 100 ml Ampicillin Sodium 1 gm/ Sodium (Chloride) 100 mls @ 200 mls/hr IV Q4H ETTA Last Admin: 07/07/18 03:58 Dose: 200 mls/hr Lactated Ringer's (Ringers, Lactated) 1,000 mls @ 100 mls/hr IV ASDIRECTED ETTA Last Admin: 07/07/18 03:59 Dose: 100 mls/hr Oxytocin/Lactated Ringer's (Pitocin In Lr 10 Units/1,000 Ml) 10 unit in 1,000 mls @ 500 mls/hr IV .CONTINUOUS [facility] Oxytocin 10 unit/ Lactated (Ringer's) 1,001 mls @ 12.01 mls/hr IV TITRATE [facility]; Protocol Last Titration: 07/07/18 00:42 Dose: 6 munits/min, 36.03 mls/hr Nalbuphine HCl (Nubain) 10 mg IVPUSH Q2H PRN PRN Reason: pain Ondansetron HCl (Zofran) 4 mg IVPUSH Q4H PRN PRN Reason: Nausea/Vomiting Ondansetron HCl (Zofran) 4 mg IVPUSH ONETIME PRN PRN Reason: Nausea/Vomiting Sodium Chloride (Saline Flush) 10 ml FLUSH ASDIRECTED PRN PRN Reason: Keep Vein Open Discontinued Medications Acetaminophen (Tylenol) 650 mg PO NOW ONE Stop: 07/07/18 00:19 Last Admin: 07/07/18 00:41 Dose: 650 mg Diphenhydramine HCl (Benadryl) 25 mg IVPUSH ONETIME ONE Stop: 07/06/18 22:49 Last Admin: 07/06/18 23:12 Dose: 25 mg Diphenhydramine HCl (Benadryl) Confirm Administered Dose 50 mg .ROUTE .STK-MED ONE Stop: 07/06/18 22:59 Last Admin: 07/06/18 23:13 Dose: Not Given Diphenhydramine HCl (Benadryl) Confirm Administered Dose 50 mg .ROUTE .STK-MED ONE Stop: 07/07/18 04:32 Last Admin: 07/07/18 04:41 Dose: Not Given Diphenhydramine HCl (Benadryl) 25 mg IVPUSH ONETIME ONE Stop: 07/07/18 04:40 Last Admin: 07/07/18 04:43 Dose: 25 mg Ampicillin Sodium 2 gm/ Sodium (Chloride) 100 mls @ 200 mls/hr IV ONETIME ONE Stop: 07/06/18 20:29 Last Admin: 07/06/18 19:50 Dose: 200 mls/hr - Problem List & Annotations (1) GBS bacteriuria SNOMED Code(s): 61019719 Code(s): R82.71 - BACTERIURIA Status: Acute Current Visit: Yes (2) Rh negative state in antepartum period SNOMED Code(s): 311207551 Code(s): O09.899 - SUPERVISION OF OTHER HIGH RISK PREGNANCIES, UNSP TRIMESTER ; Z67.91 - UNSPECIFIED BLOOD TYPE, RH NEGATIVE Status: Acute Current Visit: Yes (3) AMA (advanced maternal age) multigravida 35+ SNOMED Code(s): 837123447 Code(s): O09.529 - SUPERVISION OF ELDERLY MULTIGRAVIDA, UNSPECIFIED TRIMESTER Status: Acute Current Visit: Yes (4) Anemia affecting in third trimester SNOMED Code(s): 46139325, 11809987 Code(s): O99.013 - ANEMIA COMPLICATING , THIRD TRIMESTER Status: Acute Current Visit: No (5) Vaginal delivery SNOMED Code(s): 210374575 Code(s): O80 - ENCOUNTER FOR FULL-TERM UNCOMPLICATED DELIVERY Status: Acute Current Visit: Yes (6) Second degree perineal laceration during delivery SNOMED Code(s): 9913292 Code(s): O70.1 - SECOND DEGREE PERINEAL LACERATION DURING DELIVERY Status: Acute Current Visit: Yes (7) 39 weeks gestation of SNOMED Code(s): 21616326 Code(s): Z3A.39 - 39 WEEKS GESTATION OF Status: Acute Current Visit: Yes - Problem List Review Problem List Initiated/Reviewed/Updated: Yes - My Orders Last 24 Hours: My Active Orders 07/06/18 17:55 RAPID PLASMA REAGIN,RPR [CHEM] Routine 07/06/18 19:33 Patient Status [ADT] Routine Activity as Tolerated [RC] PFP Communication Order [RC] ASDIRECTED Non Stress Test [RC] PER UNIT ROUTINE Notify Provider [RC] PFP Notify Provider [RC] PRN Vital Signs [RC] PER UNIT ROUTINE Nalbuphine [Nubain] 10 mg IVPUSH Q2H PRN Ondansetron [Zofran] 4 mg IVPUSH Q4H PRN Sodium Chloride 0.9% [Saline Flush] 10 ml FLUSH ASDIRECTED PRN Electronic Heart Tones Ext w TOCO [WOMSER] Routine Electronic Heart Tones Internal [WOMSER] Per Unit Routine Peripheral IV Insertion Adult [OM.PC] Routine Resuscitation Status Routine 07/06/18 19:34 Heart Tones [RC] ASDIRECTED Peripheral IV Care [RC] . DIRECTED 07/06/18 19:45 Lactated Ringers [Ringers, Lactated] 1,000 ml IV ASDIRECTED Oxytocin/Lactated Ringers [Pitocin in LR 10 Units/1,000 ML] 10 unit in 1,000 ml IV .CONTINUOUS 07/06/18 22:15 Oxytocin [Pitocin] 10 unit Lactated Ringers [Ringers, Lactated] 1,000 ml IV TITRATE 07/06/18 Breakfast Regular Diet [DIET] 07/07/18 00:00 Ampicillin 1 gm Sodium Chloride 0.9% [Normal Saline] 100 ml IV Q4H 07/07/18 06:02 Patient Status Manage Transfer [TRANSFER] Routine - Plan Plan:: Admit to inpatient following normal spontaneous vaginal delivery Continue Pitocin per unit protocol following delivery of placenta and lactated Ringer's until tolerating regular diet Regular diet Vitals per unit routine Ibuprofen and Tylenol for pain control Assist with breast-feeding as needed Continue to monitor lochia Give patient RhoGAM if infant has Rh+ blood Anticipate discharge home on day #1 Mook Cazares MD 6:11 AM 07/07/2018
[2018-07-07] MEDS ORDERED: Oxytocin/Lactated Ringers 10 UNIT/1,000 ML BAG IV SCH (06:30)
[2018-07-07] MEDS ORDERED: Lanolin 100% Cream 7 GM Tube TOP PRN (06:30)
[2018-07-07] MEDS ORDERED: Witch Hazel Medicated Pads 100/Jar TOP PRN (06:30)
[2018-07-07] MEDS ORDERED: Acetaminophen 325 MG Tab PO PRN (06:30)
[2018-07-07] MEDS ORDERED: Hydrocortisone Acetate 25 MG Supp RECTAL PRN (06:30)
[2018-07-07] MEDS ORDERED: Benzocaine/Menthol 20%-0.5% Spray 56 GM Canister TOP PRN (06:30)
[2018-07-07] MEDS ORDERED: Magnesium Hydroxide 400 MG/5 ML Susp 30 ML Cup PO PRN (06:30)
[2018-07-07] MEDS ORDERED: Docusate Sodium 100 MG Cap PO PRN (06:30)
[2018-07-07] MEDS: Prenatal Multivitamin with Calcium/Folic Acid/Iron Tab PO SCH (09:43)
[2018-07-07] MEDS: Ferrous Sulfate 325 MG Tab PO SCH (09:43)
[2018-07-07] MEDS: Ibuprofen 600 MG Tab PO PRN ×2 (16:31→21:51)
[2018-07-08] MEDS: Acetaminophen 325 MG Tab PO PRN ×2 (01:30→09:36)
[2018-07-08] MEDS: Ibuprofen 600 MG Tab PO PRN ×2 (04:58→12:12)
[2018-07-08] MEDS: Ferrous Sulfate 325 MG Tab PO SCH (08:24)
[2018-07-08] MEDS: Prenatal Multivitamin with Calcium/Folic Acid/Iron Tab PO SCH (08:24)
--- NOTE | 2018-07-08 10:13 | PCM.SN ---
- Free Text/Narrative Note: Post Progress Note PPD # 1 Subjective: Doing well overall. Ambulating without difficulty. Lochia minimal. Voiding without difficulty. Tolerating regular diet without nausea or vomiting. Pain moderate in quality that she rates at 6/10. She states that she has most pain with cramping in her uterus. She reports that she has had some control of her pain with oral medications. Bottle feeding with minimal difficulty. Objective: Vitals: Vital Signs - 24 hr 07/07/18 07/07/18 07/07/18 11:53 14:36 21:00 Temperature 36.4 C Temperature [ 36.7 C Temporal] Pulse, 65 Peripheral Respiratory 14 Rate Blood Pressure 112/57 L 107/61 O2 Sat by Pulse 100 Oximetry 07/07/18 07/08/18 21:32 05:15 Temperature 36.3 C Temperature [ Temporal] Pulse, 64 67 Peripheral Respiratory 16 14 Rate Blood Pressure 118/75 123/93 H O2 Sat by Pulse 100 100 Oximetry Physical Exam General: Alert and oriented, no acute distress Lungs: Clear to auscultation bilaterally Heart: Regular rate and rhythm Abdomen: Soft, minimal appropriate tenderness, non-distended, fundus midline, nontender, and at the umbilicus Extremities: 1+ edema in bilateral lower extremities to mid shins ASSESSMENT: 37-year-old female s/p normal vaginal delivery PPD #1, complicated by Rh- status, GBS bacteriuria, dilated upper pole calyx and the right kidney , history of premature contractions in , anemia in , advanced maternal age with normal genetic testing, recurrent UTIs in PLAN: Doing well Bottle feeding with minimal difficulty. Assist as needed Lochia minimal. Continue to monitor for appropriate lochia. Continue routine care Patient with a negative blood type and with a positive blood type. She has already received RhoGAM prior to discharge. Anticipate discharge home today Mook Cazares MD 10:12 AM 07/08/2018
--- NOTE | 2018-07-08 10:17 | PCM.DCSUM1 ---
Discharge Summary - Hospital Course Free Text/Narrative:: Labor: Spontaneous, Augmented by Oxytocin Delivery Outcome: Livebirth Delivery Method: Spontaneous Vaginal Delivery-Single Presentation: Right Occiput Anterior (RUCHI) Nuchal Cord: None Prep: Povidone-Iodine (Betadine Anesthesia Type: Epidural Amniotic Fluid Description: Clear Episiotomy Type: None Laceration: 2nd Degree, Perineal (midline) Suture type: Vicryl Suture size: 4-0 Placenta: Intact, Spontaneous Cord: 3 Vessels Estimated Blood Loss: 200 Resuscitation Needed: No [place]: Bulb Syringe, Stimulated, Warmed, [place] Used, Warmer Used Provider: Mook Cazares Score 1 min: 7 Score 5 min: 9 Second Stage Interventions: Reports: Pushing Effectively, Pushing, Pulls Own Legs Back, Pushing, Stirrups/Leg Supports Delivery Comments (Free Text/Narrative):: Stage I: Jessica Vaughan was admitted for spontaneous rupture membranes with positive Amnisure test. On admission her cervix was dilated to 3 cm. She was GBS positive bacteriuria and was started on ampicillin. She received a total of 3 doses. She was given an epidural for anesthesia. She was started on Pitocin for augmentation of labor. She had artificial rupture of membranes of a forebag to assist with augmentation. She progressed to complete and pushing. Stage II: On 07/07/2018 she had a normal vaginal delivery of a live female at 0543. Apgars of 7 & 9. Weight of 2770 g (6 lbs 2 oz). Length of 20 inches. There was no nuchal cord. Infant was delivered in RUCHI position. The cord was doubly clamped and cut by myself. was placed on mother's abdomen. Stage III: She had a spontaneous delivery of an intact placenta in Cami presentation. Three vessel cord. She was given pitocin and fundal massage. She had a second-degree midline perineal laceration that was repaired with 3-0 Vicryl. Mom and baby were stable to recovery. EBL of 200 mL. HPI Initial Comments: Labor: Spontaneous, Augmented by Oxytocin Delivery Outcome: Livebirth Infant Delivery Method: Spontaneous Vaginal Delivery-Single Presentation: Right Occiput Anterior (RUCHI) Nuchal Cord: None Prep: Povidone-Iodine (Betadine Anesthesia Type: Epidural Amniotic Fluid Description: Clear Episiotomy Type: None Laceration: 2nd Degree, Perineal (midline) Suture type: Vicryl Suture size: 4-0 Placenta: Intact, Spontaneous Cord: 3 Vessels Estimated Blood Loss: 200 Resuscitation Needed: No [place]: Bulb Syringe, Stimulated, Warmed, [place] Used, Warmer Used Provider: Mook Cazares Score 1 min: 7 Score 5 min: 9 Second Stage Interventions: Reports: Pushing Effectively, Pushing, Pulls Own Legs Back, Pushing, Stirrups/Leg Supports Delivery Comments (Free Text/Narrative):: Stage I: Jessica Vaughan was admitted for spontaneous rupture membranes with positive Amnisure test. On admission her cervix was dilated to 3 cm. She was GBS positive bacteriuria and was started on ampicillin. She received a total of 3 doses. She was given an epidural for anesthesia. She was started on Pitocin for augmentation of labor. She had artificial rupture of membranes of a forebag to assist with augmentation. She progressed to complete and pushing. Stage II: On 07/07/2018 she had a normal vaginal delivery of a live female at 0543. Apgars of 7 & 9. Weight of 2770 g (6 lbs 2 oz). Length of 20 inches. There was no nuchal cord. Infant was delivered in RUCHI position. The cord was doubly clamped and cut by myself. was placed on mother's abdomen. Stage III: She had a spontaneous delivery of an intact placenta in Cami presentation. Three vessel cord. She was given pitocin and fundal massage. She had a second-degree midline perineal laceration that was repaired with 3-0 Vicryl. Mom and baby were stable to recovery. EBL of 200 mL. Brief History: Labor: Spontaneous, Augmented by Oxytocin. Delivery Outcome: Livebirth. Infant Delivery Method: Spontaneous Vaginal Delivery-Single. Presentation: Right Occiput Anterior (RUCHI). Nuchal Cord: None. Prep: Povidone- Iodine (Betadine. Anesthesia Type: Epidural. Amniotic Fluid Description: Clear. Episiotomy Type: None. Laceration: 2nd Degree, Perineal (midline). Suture type: Vicryl. Suture size: 4-0. Placenta: Intact, Spontaneous. Cord: 3 Vessels. Estimated Blood Loss: 200. Resuscitation Needed: No. [place]: Bulb Syringe, Stimulated, Warmed, [place] Used, Warmer Used. Provider : Mook Cazares. Score 1 min: 7. Score 5 min: 9. Second Stage Interventions: Reports: Pushing Effectively, Pushing, Pulls Own Legs Back, Pushing, Stirrups/Leg Supports. Delivery Comments (Free Text/Narrative):: Stage I: Jessica Vaughan was admitted for spontaneous rupture membranes with positive Amnisure test. On admission her cervix was dilated to 3 cm. She was GBS positive bacteriuria and was started on ampicillin. She received a total of 3 doses. She was given an epidural for anesthesia. She was started on Pitocin for augmentation of labor. She had artificial rupture of membranes of a forebag to assist with augmentation. She progressed to complete and pushing. Stage II: On 07/07/2018 she had a normal vaginal delivery of a live female at 0543. Apgars of 7 & 9. Weight of 2770 g (6 lbs 2 oz). Length of 20 inches. There was no nuchal cord. Infant was delivered in RUCHI position. The cord was doubly clamped and cut by myself. was placed on mother's abdomen. Stage III: She had a spontaneous delivery of an intact placenta in Cami presentation. Three vessel cord. She was given pitocin and fundal massage. She had a second-degree midline perineal laceration that was repaired with 3-0 Vicryl. Mom and baby were stable to recovery. EBL of 200 mL. Diagnosis: Stroke: No - Discharge Data Discharge Date: 07/08/18 Discharge Disposition: Home, Self-Care 01 Condition: Good - Discharge Diagnosis/Problem(s) (1) GBS bacteriuria SNOMED Code(s): 90962333 ICD Code: R82.71 - BACTERIURIA Status: Acute Current Visit: Yes (2) Rh negative state in antepartum period SNOMED Code(s): 191692259 ICD Code: O09.899 - SUPERVISION OF OTHER HIGH RISK PREGNANCIES, UNSP TRIMESTER; Z67.91 - UNSPECIFIED BLOOD TYPE, RH NEGATIVE Status: Acute Current Visit: Yes (3) AMA (advanced maternal age) multigravida 35+ SNOMED Code(s): 365244618 ICD Code: O09.529 - SUPERVISION OF ELDERLY MULTIGRAVIDA, UNSPECIFIED TRIMESTER Status: Acute Current Visit: Yes (4) Anemia affecting in third trimester SNOMED Code(s): 46412288, 07032700 ICD Code: O99.013 - ANEMIA COMPLICATING , THIRD TRIMESTER Status: Acute Current Visit: No (5) Vaginal delivery SNOMED Code(s): 911152743 ICD Code: O80 - ENCOUNTER FOR FULL-TERM UNCOMPLICATED DELIVERY Status: Acute Current Visit: Yes (6) Second degree perineal laceration during delivery SNOMED Code(s): 5898215 ICD Code: O70.1 - SECOND DEGREE PERINEAL LACERATION DURING DELIVERY Status : Acute Current Visit: Yes (7) 39 weeks gestation of SNOMED Code(s): 35706996 ICD Code: Z3A.39 - 39 WEEKS GESTATION OF Status: Acute Current Visit: Yes - Patient Summary/Data Complications: None Consults: None Hospital Course: Jessica Vaughan was admitted for spontaneous rupture membranes with positive Amnisure. Patient was uncertain of color of fluid as she had rupture membranes while she was showering. On admission her cervix was dilated to 3 cm. She was GBS positive bacteriuria and was started on ampicillin and received a total of 3 doses prior to delivery. She was given pitocin for augmentation. She was given an epidural for anesthesia. She had artificial rupture of membranes of a forebag with clear fluid. She progressed to complete and began pushing. On 2018 she had a normal vaginal delivery of a live female infant at 0543. Apgars of 7 and 9. Weight of 2770 g (6 lbs. 2 oz.). Her course was uneventful. Her pain was well controlled and she had minimal lochia. She was ambulating, tolerating a regular diet and voiding normally. She was bottle feeding. She was afebrile and her hematocrit was 29.3 on admission. She desired to be discharged home on the morning of PPD #1. Her blood type is A- and infant has A+ blood type. She was given RhoGAM prior to discharge. Patient with anemia prior to delivery and was continued on iron supplementation after delivery. - Patient Instructions Diet: Regular Diet as Tolerated Activity: Apply Ice, As Tolerated Activity, Other: Nothing in the vagina for 6 weeks Driving: May Drive Today Showering/Bathing: May Shower Notify Provider of: Fever, Increased Pain, Swelling and Redness, Drainage, Nausea and/or Vomiting Other/Special Instructions: Please contact your physician's office if you have heavy vaginal bleeding enough to soak a pad in less than an hour for several hours. Monitor for any signs of an infection in the breasts with severe pain or redness of the breast. - Discharge Plan *PRESCRIPTION DRUG MONITORING PROGRAM REVIEWED*: Not Applicable *COPY OF PRESCRIPTION DRUG MONITORING REPORT IN PATIENT FLO: Not Applicable Home Medications: Home Meds Vit #108/Iron/FA [ One Tablet] 1 tab PO DAILY 07/08/16 [History ] Ferrous Sulfate [Iron] 325 mg PO TID 01/30/17 [History] Acetaminophen [Tylenol] 650 mg PO Q4H PRN tablet 07/08/18 [Rx] Benzocaine/Menthol [Dermoplast Pain Relief [place]] 1 spray TOP ASDIRECTED PRN canister 07/08/18 [Rx] Docusate Sodium [Colace] 100 mg PO BID PRN cap 07/08/18 [Rx] Hydrocortisone Acetate [Anucort-HC] 25 mg RECTAL BID PRN supp 07/08/18 [Rx] Ibuprofen [Motrin] 600 mg PO Q6H PRN tablet 07/08/18 [Rx] Witch Gely [Tucks] 1 pad TOP ASDIRECTED PRN pad 07/08/18 [Rx] Patient Handouts: Vaginal Delivery, Care After, Care of a Perineal Tear Referrals: Zack Boyd MD [Physician] - (Follow-up in 2-3 weeks for routine visit or earlier as needed.) - Discharge Summary/Plan Comment DC Time >30 min.: No - Patient Data Vitals - Most Recent: Last Vital Signs Temp 36.3 C 07/08/18 05:15 Pulse 67 07/08/18 05:15 Resp 14 07/08/18 05:15 BP 123/93 H 07/08/18 05:15 Pulse Ox 100 07/08/18 05:15 Weight - Most Recent: 92.079 kg I&O - Last 24 hours: Intake & Output 07/07/18 07/08/18 07/08/18 22:59 06:59 14:59 Intake Total 600 480 Balance 600 480 Lab Results - Last 24 hrs: Laboratory Results - last 24 hr 07/07/18 Range/Units 09:15 Blood Type A NEGATIVE Gel Antibody Screen Positive Screen 0 ros/5 flds - neg RhIG Candidate? Yes Rhogam Indicated Yes, baby rh pos H Med Orders - Current: Current Medications Acetaminophen (Tylenol) 650 mg PO Q4H PRN PRN Reason: Pain Last Admin: 07/08/18 09:36 Dose: 650 mg Benzocaine/Menthol (Dermoplast Pain Relief [place]) 0 gm TOP ASDIRECTED PRN PRN Reason: Perineal Comfort Measure Last Admin: 07/07/18 07:51 Dose: 1 can Docusate Sodium (Colace) 100 mg PO BID PRN PRN Reason: Constipation Emollient Ointment (Lansinoh Hpa) 0 gm TOP ASDIRECTED PRN PRN Reason: Sore Nipples Ferrous Sulfate (Ferrous Sulfate) 325 mg PO WITHBREAKFAST ETTA Last Admin: 07/08/18 08:24 Dose: 325 mg Hydrocortisone Acetate (Anucort-Hc) 25 mg RECTAL BID PRN PRN Reason: Hemorrhoid pain Oxytocin/Lactated Ringer's (Pitocin In Lr 10 Units/1,000 Ml) 10 unit in 1,000 mls @ 100 mls/hr IV TITRATE ETTA; Protocol Ibuprofen (Motrin) 600 mg PO Q6H PRN PRN Reason: Mild pain or fever Last Admin: 07/08/18 04:58 Dose: 600 mg Magnesium Hydroxide (Milk Of Magnesia) 30 ml PO BEDTIME PRN PRN Reason: Constipation Prenat Multivit/Electrician Deck/Iron/Folic Ac ( Plus Iron) 1 each PO DAILY ETTA Last Admin: 07/08/18 08:24 Dose: 1 each Witch Gely (Tucks) 1 pad TOP ASDIRECTED PRN PRN Reason: Hemorrhoid pain Last Admin: 07/07/18 07:51 Dose: 1 pad Discontinued Medications Acetaminophen (Tylenol) 650 mg PO NOW ONE Stop: 07/07/18 00:19 Last Admin: 07/07/18 00:41 Dose: 650 mg Acetaminophen (Tylenol) 650 mg PO Q6H PRN PRN Reason: mild pain or fever Last Admin: 07/07/18 18:28 Dose: 650 mg Diphenhydramine HCl (Benadryl) 25 mg IVPUSH ONETIME ONE Stop: 07/06/18 22:49 Last Admin: 07/06/18 23:12 Dose: 25 mg Diphenhydramine HCl (Benadryl) Confirm Administered Dose 50 mg .ROUTE .STK-MED ONE Stop: 07/06/18 22:59 Last Admin: 07/06/18 23:13 Dose: Not Given Diphenhydramine HCl (Benadryl) Confirm Administered Dose 50 mg .ROUTE .STK-MED ONE Stop: 07/07/18 04:32 Last Admin: 07/07/18 04:41 Dose: Not Given Diphenhydramine HCl (Benadryl) 25 mg IVPUSH ONETIME ONE Stop: 07/07/18 04:40 Last Admin: 07/07/18 04:43 Dose: 25 mg Ephedrine Sulfate (Ephedrine Sulfate) 5 mg IVPUSH ASDIRECTED PRN PRN Reason: Hypotension Fentanyl (Sublimaze) 100 mcg EPIDUR Q3H PRN PRN Reason: Pain Last Admin: 07/06/18 21:14 Dose: 100 mcg Fentanyl/Bupivacaine HCl (Fentanyl/Bupivacaine/Ns 2 Mcg-0.125% 100 Ml) 100 ml EPIDUR ASDIRECTED ETTA Last Admin: 07/06/18 21:14 Dose: 100 ml Ampicillin Sodium 2 gm/ Sodium (Chloride) 100 mls @ 200 mls/hr IV ONETIME ONE Stop: 07/06/18 20:29 Last Admin: 07/06/18 19:50 Dose: 200 mls/hr Ampicillin Sodium 1 gm/ Sodium (Chloride) 100 mls @ 200 mls/hr IV Q4H [facility] Last Admin: 07/07/18 03:58 Dose: 200 mls/hr Lactated Ringer's (Ringers, Lactated) 1,000 mls @ 100 mls/hr IV ASDIRECTED ETTA Last Admin: 07/07/18 03:59 Dose: 100 mls/hr Oxytocin/Lactated Ringer's (Pitocin In Lr 10 Units/1,000 Ml) 10 unit in 1,000 mls @ 500 mls/hr IV .CONTINUOUS ETTA Oxytocin 10 unit/ Lactated (Ringer's) 1,001 mls @ 12.01 mls/hr IV TITRATE ETTA; Protocol Last Titration: 07/07/18 05:45 Dose: 999 munits/min, 5,999.99 mls/hr Nalbuphine HCl (Nubain) 10 mg IVPUSH Q2H PRN PRN Reason: pain Ondansetron HCl (Zofran) 4 mg IVPUSH Q4H PRN PRN Reason: Nausea/Vomiting Ondansetron HCl (Zofran) 4 mg IVPUSH ONETIME PRN PRN Reason: Nausea/Vomiting Sodium Chloride (Saline Flush) 10 ml FLUSH ASDIRECTED PRN PRN Reason: Keep Vein Open
[2018-07-08 10:50] VITALS: BP 111/75
== END 2018-07-08 12:35 | disposition home or self-care (01) | DRG 807 ==
LOC: JD.OBCHECK 18:36 → JD.OB 18:36 → JD.OBCHECK 19:32 → JD.OB 19:33 → OBSVTOIN 07-07 05:43 → JD.OB 07-07 05:43
PROVIDERS: ADMIT Obstetrics & Gynecology; ATTEND Obstetrics & Gynecology
PROC: 10E0XZZ Delivery of Products of Conception, External Approach (ICD-10-PCS; principal; 2018-07-07)
PROC: 0KQM0ZZ Repair Perineum Muscle, Open Approach (ICD-10-PCS; principal; 2018-07-07)
PROC: 10907ZC Drainage of Amniotic Fluid, Therapeutic from Products of Conception, Via Natural or Artificial Opening (ICD-10-PCS; principal; 2018-07-07)
PROC: 3E0R3BZ Introduction of Anesthetic Agent into Spinal Canal, Percutaneous Approach (ICD-10-PCS; 2018-07-07)
PROC: 00HU33Z Insertion of Infusion Device into Spinal Canal, Percutaneous Approach (ICD-10-PCS; 2018-07-07)
PROC: 3E0234Z Introduction of Serum, Toxoid and Vaccine into Muscle, Percutaneous Approach (ICD-10-PCS; 2018-07-07)
DX: O99.824 Streptococcus B carrier state complicating childbirth (principal); Z37.0 Single live birth; O70.1 Second degree perineal laceration during delivery; O99.02 Anemia complicating childbirth; D64.9 Anemia, unspecified; Z3A.39 39 weeks gestation of pregnancy; O26.893 Other specified pregnancy related conditions, third trimester; Z67.11 Type A blood, Rh negative; Z87.440 Personal history of urinary (tract) infections; O99.214 Obesity complicating childbirth; E66.9 Obesity, unspecified; Z87.891 Personal history of nicotine dependence
CPT/HCPCS: 36415; 36430; 51702; 59025; 59409; 84112; 85025; 86592; A9270-GY; J0290; J1200; J2590; J2790; J3010; J7030; J7120

== ENCOUNTER 2020-02-01 23:40 | Emergency (ER) | payer BC, OTHER ==
[2020-02-01 23:57] VITALS: BP 151/81; PULSE 113
--- NOTE | 2020-02-02 00:14 | EDM.PDOC ---
ED HPI GENERAL MEDICAL PROBLEM - General Chief Complaint: ENT Problem Stated Complaint: nose bleed and lip laceration fell down the stairs Time Seen by Provider: 02/01/20 23:57 Source of Information: Reports: Patient History Limitations: Reports: No Limitations - History of Present Illness INITIAL COMMENTS - FREE TEXT/NARRATIVE: Mrs. Vaughan is a very pleasant 39-year-old woman who now presents the ED after injuring her face. She states that she was going up some steps leading into her house from her backyard around 23:30 tonight, when she missed a step, falling forward, and striking her face. She had nose pain with epistaxis. She denies any other injuries. The patient states that she had half a beer earlier today, and 1 drink tonight. She does not appear to be intoxicated. Here in the ED, the patient's initial BP is found to be mildly elevated at 151/81, with a tachycardia of 113 bpm. Otherwise, she is hemodynamically stable, afebrile, saturating 100% on room air. Other than tonight's injury, the patient denies recent fever, chills, sore throat, ear pain, nasal or sinus congestion, cough, dyspnea, chest pain, palpitations, nausea, vomiting, constipation, diarrhea, abdominal pain, urinary symptoms, recent weight gain or weight loss, recent bloody bowel movements or black bowel movements, recent joint aches, headaches, or rashes. The patient does not have a PCP. Her Rental Car Porter is Dr. Zack Boyd. Nose Pain Score (Numeric/FACES): 7 - Related Data Allergies Allergy/AdvReac Type Severity Reaction Status Date / Time No Known Allergies Allergy Verified 02/01/20 23:56 Home Meds: Home Meds . [No Known Home Meds] 02/01/20 [History] Past Medical History Gastrointestinal History: Reports: GERD (only while ) : 3 Para: 3 - Infectious Disease History Infectious Disease History: Reports: Chicken Pox, Shingles - Past Surgical History HEENT Surgical History: Reports: Oral Surgery (wisdom teeth extraction) Female Surgical History: Reports: Cervical Conization Musculoskeletal Surgical History: Reports: Other (See Below) (Bilateral bunionectomy x 2) Social & Family History - Family History Family Medical History: Noncontributory - Tobacco Use Smoking Status *Q: Current Every Day Smoker Years of Tobacco use: 14 Packs/Tins Daily: 0.5 Packs/Tins Daily Comment: Down from 1 ppd - Caffeine Use Caffeine Use: Reports: None Other Caffeine Use: 1 cup daily Caffeine Use Comment: drinks coffee daily - Alcohol Use Alcohol Use History: Yes Alcohol Use Frequency: Socially - Recreational Drug Use Recreational Drug Use: No - Living Situation & Occupation Living situation: Reports: , with Spouse, with Family (3 kids) Occupation: Unemployed ED ROS GENERAL - Review of Systems Review Of Systems: Comprehensive ROS is negative, except as noted in HPI. ED EXAM, GENERAL - Physical Exam Exam: See Below Exam Limited By: No Limitations General Appearance: Alert, WD/WN, No Apparent Distress Eye Exam: Bilateral Eye: EOMI, Normal Inspection Ears: Normal External Exam, Normal Canal, Hearing Grossly Normal, Normal TMs Nose: Normal Mucosa (No septal hematoma. Blood noted in the right nostril, but no active bleeding.), Nasal Tenderness, Nasal Swelling (Mild, with visible ecchymosis). No: Nasal Deformity Throat/Mouth: Normal Inspection, Normal Teeth, Normal Gums, Normal Oropharynx, Normal Voice, No Airway Compromise, Other (Approximately 0.7 cm partial- thickness linear laceration to the upper lip, just under the right nostril. When the lip is inverted, there is some swelling and ecchymosis noted to the inner aspect of the upper lip, but no laceration seen.) Head: Normocephalic Neck: Normal Inspection, Supple, Non-Tender, Full Range of Motion. No: Lymphadenopathy (L), Lymphadenopathy (R) Neurological: Alert, Oriented, Normal Cognition, No Motor/Sensory Deficits ED GENERAL MEDICAL PROCEDURES - Laceration/Wound Repair Upper Mouth Lac/wound length in cm: 0.7 Appearance: Subcutaneous (partial thickness), Linear, Clean Distal NVT: Neuro & Vascular Intact, No Tendon Injury Skin Prep: Saline Exploration/Debridement/Repair: Wound Explored, In a Bloodless Field, Explored to Base, No Foreign Material Found Closed with: Dermabond Drain Placement: No Sterile Dressing Applied: None Tetanus Status Addressed: Yes Complications: No Course - Vital Signs Last Recorded V/S: Last Vital Signs Temp 36.1 C 02/01/20 23:47 Pulse 113 H 02/01/20 23:47 Resp 20 02/01/20 23:47 BP 151/81 H 02/01/20 23:47 Pulse Ox 100 02/01/20 23:47 - Orders/Labs/Meds Orders: Active Orders 24 hr Category Date Time Status Vaccines to be Administered [RC] PER UNIT ROUTINE Care 02/02/20 01:04 Active Nasal Bone Min 3V [CR] Stat Exams 02/02/20 00:01 Taken Meds: Medications Discontinued Medications Generic Name Dose Route Start Last Admin Trade Name Fresteven PRN Reason Stop Dose Admin Diphtheria/Tetanus/Acell Pertussis 0.5 ml 02/02/20 01:04 02/02/20 01:18 Adacel IM 02/02/20 01:05 0.5 ml .ONCE ONE Administration - Re-Assessments/Exams Free Text/Narrative Re-Assessment/Exam: 02/02/20 00:10 As above, the patient tripped while going up stairs from her backyard earlier this evening, striking her nose, causing epistaxis, and suffering a small laceration to her upper lip just under her right nostril. She has tenderness and some ecchymosis to her nasal bones, therefore I have ordered x-rays to evaluate for a nasal bone fracture. There is no septal hematoma, and no active epistaxis. The laceration to her upper lip is a good candidate for Dermabond, since the edges appose each other. There is an ecchymosis seen to the upper lip when the lip is inverted, but no laceration to the buccal aspect of the lip. No other facial injuries found. The patient declined an offer for pain medication. 02/02/20 00:50 3-view radiographs of the nasal bones appear to be grossly normal, with no fracture identified. Formal read per the Radiologist pending. 02/02/20 00:58 X-ray results discussed with the patient. I applied Dermabond to the upper lip laceration. The patient tolerated the procedure well. The patient will be given a tetanus vaccination prior to discharge. Departure - Departure Time of Disposition: 00:59 Disposition: Home, Self-Care 01 Condition: Good Clinical Impression: Fall at home, Nasal contusion, Lip laceration - Discharge Information *PRESCRIPTION DRUG MONITORING PROGRAM REVIEWED*: Not Applicable *COPY OF PRESCRIPTION DRUG MONITORING REPORT IN PATIENT FLO: Not Applicable Instructions: Contusion, [id number], Sutures, Kailey, or Adhesive Wound Closure, [id number] Referrals: Zack Boyd MD [Physician] - Forms: ED Department Discharge Additional Instructions: You were seen in the emergency room after tripping while going upstairs, striking your nose and upper lip on the steps. Work-up in the ER included x-rays of your nasal bones, which returned normal. Do not have a broken nose. A small laceration was found on your upper right lip. Dermabond was applied to the laceration. You may bathe as you normally would, however, do not pick at the Dermabond - allow it to flake off on its own over the next several days. You may take Tylenol or ibuprofen as needed for discomfort. An ice pack to your upper lip may also help with the discomfort. If any other problems, please do not hesitate to return to the ER. *You received a tetanus vaccination during your ER visit.* Sepsis Event Note (ED) - Evaluation Sepsis Screening Result: No Definite Risk - Focused Exam Vital Signs: Vital Signs Temp Pulse Resp BP Pulse Ox 02/01/20 23:47 36.1 C 113 H 20 151/81 H 100 - My Orders Last 24 Hours: My Active Orders 02/02/20 00:01 Nasal Bone Min 3V [CR] Stat 02/02/20 01:04 Vaccines to be Administered [RC] PER UNIT ROUTINE - Assessment/Plan Last 24 Hours: My Active Orders 02/02/20 00:01 Nasal Bone Min 3V [CR] Stat 02/02/20 01:04 Vaccines to be Administered [RC] PER UNIT ROUTINE
[2020-02-02] MEDS ORDERED: Ondansetron 4 MG/2 ML SDV IVPUSH ONE (00:49)
[2020-02-02] MEDS ORDERED: Diphtheria,Pertussis(Acell),Tetanus Vaccine 0.5 ML Syringe IM ONE (01:04)
--- NOTE | 2020-02-02 13:47 | CR ---
Nasal bone: 3 views of the nasal bones were obtained. Nondisplaced nasal bone fracture is noted. Visualized paranasal sinuses are clear. Surrounding bony structures are otherwise unremarkable. Impression: 1. Nondisplaced nasal bone fracture. Diagnostic code #3 This report was dictated in MDT
== END 2020-02-02 01:25 | disposition home or self-care (01) ==
LOC: JD.ED 23:40
DX: S01.511A Laceration without foreign body of lip, initial encounter (principal); F17.210 Nicotine dependence, cigarettes, uncomplicated; Z23 Encounter for immunization; W10.9XXA Fall (on) (from) unspecified stairs and steps, initial encounter; Y92.009 Unspecified place in unspecified non-institutional (private) residence as the place of occurrence of the external cause
CPT/HCPCS: 12011; 70160; 70160-26; 90471; 90715; 99282; 99283-25

== ENCOUNTER 2021-03-04 11:54 | Emergency (ER) | payer BC ==
[2021-03-04] MEDS ORDERED: Dextrose 5%-Lactated Ringers 1,000 ML IV SCH (13:00)
--- NOTE | 2021-03-04 13:00 | EDM.PDOC ---
ED HPI GENERAL MEDICAL PROBLEM - General Chief Complaint: General Stated Complaint: COVID + BODY ACHES Time Seen by Provider: 03/04/21 12:51 Source of Information: Reports: Patient History Limitations: Reports: No Limitations - History of Present Illness INITIAL COMMENTS - FREE TEXT/NARRATIVE: 40-year-old female presents to the ED for evaluation of worsening Covid symptoms. She believes her symptoms started last February 25. Her entire family is currently ill with Covid including her and 3 children. Comes to the ED today mainly due to very bad pleuritic left-sided chest pain and rattly respirations. She also has a very bad chemical taste in her nose and mouth making it nearly impossible to find anything decent to eat. She has not eaten hardly anything since per 3 days. She is taking a small amount of fluids feels lightheaded and dizzy. Only made urine once in the last 24 hours. Still has a fever with occasional chills. Has not had any diarrhea but is nauseated. She did not receive any COVID-19 vaccine. Onset: Sudden Onset Date: 02/25/21 (Element of fever chills headache and nasal congestion) Duration: Day(s):, Getting Worse Location: Reports: Face (Is a congestion and foul taste in her mouth and throat. Sore throat as well.), Chest (Left pleuritic chest pain with productive cough.) Quality: Reports: Ache, Other (Neurolyse myalgia headache) Severity: Moderate Improves with: Reports: Medication (Motrin helps somewhat with the pain.) Worsens with: Reports: Other Context: Reports: Sick Contact. Denies: Activity (Coughing is much worse when she lies down.), Exercise, Lifting, Trauma, Other (Tired family is sick with COVID-19 illness. Not sure who brought at home.) Associated Symptoms: Reports: Chest Pain, Cough (White sputum), cough w sputum, Fever/Chills, Headaches, Loss of Appetite, Malaise, Nausea/Vomiting, Shortness of Breath, Weakness (Is without vomiting), Other ( generalized weakness generalized myalgia). 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.) Left Thoracic Pain Score (Numeric/FACES): 8 - Related Data Allergies Allergy/AdvReac Type Severity Reaction Status Date / Time No Known Allergies Allergy Verified 03/04/21 12:29 Home Meds: Home Meds Acetaminophen/oxyCODONE [Percocet 325-5 MG] 1 - 2 each PO Q6HR PRN #12 tab 03/04/21 [Rx] dexAMETHasone [Decadron] 6 mg PO BID #10 tablet 03/04/21 [Rx] Past Medical History - Past Health History Medical/Surgical History: Denies Medical/Surgical History HEENT History: Reports: None Other Cardiovascular History: Heart murmur Respiratory History: Reports: None Other Respiratory History: Orthopnea but denies SOB otherwise Gastrointestinal History: Reports: GERD Other Gastrointestinal History: Constipation Genitourinary History: Reports: UTI, Recurrent, Other (See Below) Other Genitourinary History: states she was admitted a few months ago for kidney inffention (UTI) 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 - Infectious Disease History Infectious Disease History: Reports: Chicken Pox, Shingles - Past Surgical History HEENT Surgical History: Reports: Oral Surgery Female Surgical History: Reports: Cervical Conization Endocrine Surgical History: Reports: None Musculoskeletal Surgical History: Reports: Other (See Below) Other Musculoskeletal Surgeries/Procedures:: double bunion surgery both feet Social & Family History - Family History Family Medical History: No Pertinent Family History - Caffeine Use Caffeine Use: Reports: None Other Caffeine Use: 1 cup daily Caffeine Use Comment: drinks coffee daily - Living Situation & Occupation Living situation: Reports: , with Spouse, with Family (3 kids) Occupation: Unemployed ED ROS GENERAL - Review of Systems Review Of Systems: See Below Constitutional: Reports: Fever, Chills, Malaise, Weakness, Fatigue, Decreased Appetite HEENT: Reports: Sinus Problem (Radiates up into her ears. Nasal congestion with Covid), Throat Pain Respiratory: Reports: Shortness of Breath, Pleuritic Chest Pain, Cough (Very bad on the left side.), Sputum (Active cough). Denies: Wheezing, Hemoptysis ( white sputum) Cardiovascular: Reports: Chest Pain, Dyspnea on Exertion, Lightheadedness, Palpitations. Denies: Blood Pressure Problem, Claudication, Edema (Presumably due to dehydration), Orthopnea Endocrine: Reports: Fatigue GI/Abdominal: Reports: Decreased Appetite, Nausea. Denies: Diarrhea : Reports: Other (Urine is very dark in color. She thinks she is only gone once in the last 24 hours) Musculoskeletal: Reports: Muscle Pain (Generalized myalgia) Skin: Reports: No Symptoms Neurological: Reports: Dizziness, Headache Psychiatric: Reports: No Symptoms Hematologic/Lymphatic: Reports: No Symptoms Immunologic: Reports: No Symptoms ED EXAM, GENERAL - Physical Exam Exam: See Below Exam Limited By: No Limitations General Appearance: Alert, WD/WN, Moderate Distress (Mostly due to pleuritic sharp stabbing chest pain with every breath.), Other (Appears ill. Temperature was 36.9 but she feels warmer than this. Heart rate at the bedside was 116 and sinus. Respiratory to 16 with O2 sats of 99% room air. BP 07/16/1985.) Eye Exam: Bilateral Eye: Normal Inspection, PERRL (No blepharal pallor or scleral icterus.) Ears: Normal TMs Throat/Mouth: Normal Inspection, Normal Lips, Normal Oropharynx, Other Head: Atraumatic (Her pharynx does not appear inflamed. The uvula and soft palate are slightly edematous from coughing.), Normocephalic Neck: Normal Inspection, Supple, Non-Tender, Full Range of Motion. No: Carotid Bruit, Lymphadenopathy (L), Lymphadenopathy (R) Respiratory/Chest: No Respiratory Distress, Decreased Breath Sounds, Rhonchi (Rhonchi throughout the left upper lung and left posterior lung.). No: Lungs Clear, Normal Breath Sounds, Crackles, Rales, Wheezing ( The right lung was clear.) Cardiovascular: Normal Peripheral Pulses, Regular Rate, Rhythm, No Murmur, No Rub, Tachycardia (116 at the bedside) Peripheral Pulses: 3+: Carotid (L), Carotid (R), Posterior Tibial (L), Posterior Tibial (R), Dorsalis Pedis (L), Dorsalis Pedis (R) GI/Abdominal: Normal Bowel Sounds, Soft, Non-Tender, No Organomegaly, No Mass, Pelvis Stable Back Exam: Normal Inspection, Full Range of Motion, CVA Tenderness (L). No: CVA Tenderness (R) Extremities: Normal Inspection, Normal Range of Motion, Non-Tender, No Pedal Edema Neurological: Alert, Oriented, CN II-XII Intact, Normal Cognition, Normal Gait Psychiatric: Anxious, Other Skin Exam: Warm (Good deal of discomfort.), Dry, Intact, Normal Color, No Rash #1 Interpretation EKG Date: 03/04/21 Time: 13:22 Rhythm: NSR Rate (Beats/Min): 71 [place]: Normal P-Wave: Present QRS: Normal ST-T: Normal QT: Normal EKG Interpretation Comments: Normal ECG Course - Vital Signs Last Recorded V/S: Last Vital Signs Temp 36.9 C 03/04/21 12:30 Pulse 72 03/04/21 17:15 Resp 16 03/04/21 17:15 BP 99/67 03/04/21 17:15 Pulse Ox 100 03/04/21 17:15 - Orders/Labs/Meds Labs: Laboratory Tests 03/04/21 03/04/21 03/04/21 Range/Units 12:40 12:40 12:40 WBC 5.20 (3.98-10.04) K/mm3 RBC 4.91 (3.98-5.22) M/mm3 Hgb 14.4 D (11.2-15.7) gm/dl Hct 43.2 (34.1-44.9) % MCV 88.0 (79.4-94.8) fl MCH 29.3 (25.6-32.2) pg MCHC 33.3 (32.2-35.5) g/dl RDW Std Deviation 43.0 (36.4-46.3) fL Plt Count 137 L (182-369) K/mm3 MPV 11.6 (9.4-12.3) fl Neut % (Auto) 68.3 (34.0-71.1) % Lymph % (Auto) 22.3 (19.3-51.7) % [place] % (Auto) 6.9 (4.7-12.5) % Eos % (Auto) 1.9 (0.7-5.8) Baso % (Auto) 0.4 (0.1-1.2) % Neut # (Auto) 3.55 (1.56-6.13) K/mm3 Lymph # (Auto) 1.16 L (1.18-3.74) K/mm3 [place] # (Auto) 0.36 (0.24-0.36) K/mm3 Eos # (Auto) 0.10 (0.04-0.36) K/mm3 Baso # (Auto) 0.02 (0.01-0.08) K/mm3 D-Dimer, Quantitative 0.66 H (0.19-0.50) mg/L Sodium 141 (136-145) mEq/L Potassium 4.3 (3.5-5.1) mEq/L Chloride 107 (98-107) mEq/L Carbon Dioxide 22 (21-32) mEq/L Anion Gap 16.3 H (5-15) BUN 18 (7-18) mg/dL Creatinine 0.8 (0.55-1.02) mg/dL Est Cr Clr Drug Dosing 88.38 mL/min Estimated GFR (MDRD) > 60 (>60) mL/min BUN/Creatinine Ratio 22.5 H (14-18) Glucose 92 (70-99) mg/dL Calcium 8.5 (8.5-10.1) mg/dL Magnesium (1.8-2.4) mg/dL Ferritin (8-252) ng/ml Total Bilirubin 0.2 (0.2-1.0) mg/dL AST 13 L (15-37) U/L ALT 23 (14-59) U/L Alkaline Phosphatase 70 (46-116) U/L Lactate Dehydrogenase (81-234) U/L Troponin I (0.00-0.056) ng/mL C-Reactive Protein (<1.0) mg/dL Total Protein 7.7 (6.4-8.2) g/dl Albumin 3.6 (3.4-5.0) g/dl Globulin 4.1 gm/dL Albumin/Globulin Ratio 0.9 L (1-2) 03/04/21 03/04/21 Range/Units 12:40 12:40 WBC (3.98-10.04) K/mm3 RBC (3.98-5.22) M/mm3 Hgb (11.2-15.7) gm/dl Hct (34.1-44.9) % MCV (79.4-94.8) fl MCH (25.6-32.2) pg MCHC (32.2-35.5) g/dl RDW Std Deviation (36.4-46.3) fL Plt Count (182-369) K/mm3 MPV (9.4-12.3) fl Neut % (Auto) (34.0-71.1) % Lymph % (Auto) (19.3-51.7) % [place] % (Auto) (4.7-12.5) % Eos % (Auto) (0.7-5.8) Baso % (Auto) (0.1-1.2) % Neut # (Auto) (1.56-6.13) K/mm3 Lymph # (Auto) (1.18-3.74) K/mm3 [place] # (Auto) (0.24-0.36) K/mm3 Eos # (Auto) (0.04-0.36) K/mm3 Baso # (Auto) (0.01-0.08) K/mm3 D-Dimer, Quantitative (0.19-0.50) mg/L Sodium (136-145) mEq/L Potassium (3.5-5.1) mEq/L Chloride (98-107) mEq/L Carbon Dioxide (21-32) mEq/L Anion Gap (5-15) BUN (7-18) mg/dL Creatinine (0.55-1.02) mg/dL Est Cr Clr Drug Dosing mL/min Estimated GFR (MDRD) (>60) mL/min BUN/Creatinine Ratio (14-18) Glucose (70-99) mg/dL Calcium (8.5-10.1) mg/dL Magnesium 2.1 (1.8-2.4) mg/dL Ferritin 22 (8-252) ng/ml Total Bilirubin (0.2-1.0) mg/dL AST (15-37) U/L ALT (14-59) U/L Alkaline Phosphatase (46-116) U/L Lactate Dehydrogenase 165 (81-234) U/L Troponin I < 0.017 (0.00-0.056) ng/mL C-Reactive Protein 0.5 (<1.0) mg/dL Total Protein (6.4-8.2) g/dl Albumin (3.4-5.0) g/dl Globulin gm/dL Albumin/Globulin Ratio (1-2) Meds: Medications Discontinued Medications Generic Name Dose Route Start Last Admin Trade Name Freq PRN Reason Stop Dose Admin Dexamethasone 6 mg 03/04/21 13:03 03/04/21 13:20 Dexamethasone 10 Mg/Ml Sdv IVPUSH 03/04/21 13:04 6 mg ONETIME ONE Administration Diphenhydramine HCl 50 mg 03/04/21 14:50 Diphenhydramine 50 Mg/Ml Sdv IVPUSH ONETIME PRN hypersensitivity reaction Epinephrine HCl 0.3 mg 03/04/21 14:50 Epinephrine 1 Mg/Ml Sdv IM ONETIME PRN hypersensitivity reaction Famotidine 20 mg 03/04/21 14:50 Famotidine 20 Mg/2 Ml Sdv IVPUSH ONETIME PRN hypersensitivity reaction Hydromorphone HCl 0.5 mg 03/04/21 13:05 03/04/21 13:19 Hydromorphone 0.5 Mg/0.5 Ml Syringe IVPUSH 03/04/21 13:06 0.5 mg ONETIME ONE Administration Dextrose/Lactated Ringer's 1,000 mls @ 500 mls/hr 03/04/21 13:00 03/04/21 13:18 Dextrose 5%-Lactated Ringers IV 500 mls/hr ASDIRECTED ETTA Administration Bamlanivimab 700 mg/ 310 mls @ 310 mls/hr 03/04/21 15:30 03/04/21 15:19 Etesevimab 1,400 mg/ Sodium IV 03/04/21 16:29 310 mls/hr Chloride ONETIME ONE Administration Methylprednisolone Sodium Succinate 125 mg 03/04/21 14:50 Methylprednisolone Sodium Succinate 125 Mg/2 Ml Sdv IVPUSH ONETIME PRN hypersensitivity reaction Metoclopramide HCl 7.5 mg 03/04/21 13:04 03/04/21 13:19 Metoclopramide 10 Mg/2 Ml Sdv IVPUSH 03/04/21 13:05 7.5 mg ONETIME ONE Administration Sodium Chloride 30 ml 03/04/21 15:00 Sodium Chloride 0.9% 10 Ml Syringe FLUSH ASDIRECTED ETTA - Radiology Interpretation Free Text/Narrative:: 40-year-old female presents to the ED with COVID-19 symptoms starting last . Diagnosed positive through the driving clinic on March 01. Her entire family i.e. and 3 children are sick at home with Covid as well. She is having terrible pleuritic left-sided chest pain with rhonchi throughout the left upper lobe both posteriorly and anteriorly on exam. O2 sats are between 96 to 97%. Coughing up white sputum. She remains mildly febrile. She has a strong smell of bleach or chemical taste in her nose and mouth making it very difficult to eat or drink. She has not anything to eat since March 01. She is feeling lightheaded dizzy and anxious. Pain in her left chest is her worst complaint. Plan chest x-ray. ECG routine labs. She is a candidate for Regen-Cov since they reduced the minimum BMI to 25 she is 31.5. She wishes to pursue this avenue of treatment and I will therefore order it. She will be given dexamethasone 6 mg IV as well as Dilaudid 0.5 mg IV and Reglan 7.5 mg IV for pain relief. She will also be given D5 Ringer's lactate at 500 mils an hour. - Re-Assessments/Exams Free Text/Narrative Re-Assessment/Exam: 03/04/21 13:20 I have spoken with the patient Jessica Drake to provide information about Regen-Cov herself. I offered her the fax sheet for patients and parents for their the above medication which is under experimental use authorization to read and review. She is aware the therapy has been approved by an emergency use authorization process and is not yet been fully vetted by the FDA review board or approved. Share potential risk from the therapy including adverse reaction such as allergic reactions including anaphylactic shock. I discussed there are other potential treatment options that are currently not FDA approved to treat COVID-19. I offered the opportunity ask questions and all questions were answered and she wishes to proceed with the treatment for herself Jessica Drake. 03/04/21 14:24 White count is 5.20 with an auto differential of 68% neutrophils. Hemoglobin 14.4 with hematocrit of 43.2. MCV is 88.0. Platelet count 137,000 slightly low. The elevated at 0.66. Sodium is 141 with potassium of 4.3. Chloride 107 with a bicarb of 22. Anion gap is 16.3. BUN is 18 with a creatinine of 0.8 and a GFR greater than 60. Glucose is 92 with a calcium of 8.5. Magnesium is 2.1 serum ferritin is 22 liver function is normal alkaline phosphatase is 70 LDH 165. Troponin I is less than 0.017. C-reactive protein is 0.5 total protein 7.7 with an albumin fraction of 3.6. I believe her elevated D-dimer is secondary to COVID-19 illness and with a normal LDH I would not pursue CT pulmonary angiogram at this time since her oxygen saturations are 99 to 100% on room air. 03/04/21 16:36 patient is feeling much improved. She still has mild pleuritic left-sided chest pain with deep inspiration. Cough has improved as well. She i s about a half an hour since receiving the monoclonal antibody infusion. I will start her discharge paperwork at this time. O2 sats are 99% room air. Departure - Departure Time of Disposition: 17:10 Disposition: Home, Self-Care 01 Condition: Fair Clinical Impression: COVID-19 determined by clinical diagnostic criteria, Pleurisy without effusion, Taste sense altered, Sense of smell altered, Paroxysmal cough - Discharge Information *PRESCRIPTION DRUG MONITORING PROGRAM REVIEWED*: Not Applicable *COPY OF PRESCRIPTION DRUG MONITORING REPORT IN PATIENT FLO: Not Applicable Prescriptions: dexAMETHasone [Decadron] 6 mg PO BID #10 tablet Acetaminophen/oxyCODONE [Percocet 325-5 MG] 1 - 2 each PO Q6HR PRN #12 tab PRN Reason: Pleurisy Instructions: COVID-19 Frequently Asked Questions, What You Should Know About COVID-19 to Protect Yourself and Others - CDC, 10 Things You Can Do to Manage Your COVID-19 Symptoms at Home - CDC (01/01/2020), Symptoms of Coronavirus - CDC (08/24/2020), COVID-19: Quarantine vs. Isolation - CDC (06/18/2020), Pleurisy, [id number] Referrals: PCP,None [Primary Care Provider] - Forms: ED Department Discharge Additional Instructions: Evaluation in the emergency room today in regards to symptoms of COVID-19 illness which was diagnosed on Monday this week with symptoms starting about a week ago today. You are currently therefore considered to be on day 8 and are considered contagious usually for 10 to 12 days after signs of infection start. As you indicated your entire family is ill with the COVID-19 viral illness. You are experiencing a good deal of sharp stabbing pain in your left lung field which we call pleurisy aggravated by coughing and deep breathing. The chest x- ray did not reveal any pneumonia in this area but there is increased phlegm in the lung on examination. You were treated with IV fluids to provide rehydration since you have not ate or drank much for 2 to 3 days. You are also given monoclonal antibody therapy in the ED to provide you with immediate antibodies to the virus which will hopefully improve your situation over the next 48 hours. Medications to take at home are Percocet tabs 5/325 mg strength 1 or 2 every 4- 6 hours necessary for pain relief from the pleurisy pain. They will also help reduce cough. Second medicine ,is steroid dexamethasone 6 mg tablet to be taken twice daily for the next 5 days to reduce inflammation and the infection in the lungs. You were given 1 tablet in the emergency room and next tablet should be taken around bedtime tonight.
--- NOTE | 2021-03-04 13:00 | CR ---
Chest: Portable view of the chest was obtained. Comparison: No prior chest imaging is available. Heart size and mediastinum are normal. Lungs are clear with no acute parenchymal change. Bony structures show nothing acute. Impression: 1. Nothing acute is seen on portable chest x-ray. Diagnostic code #1
[2021-03-04] MEDS ORDERED: Dexamethasone 10 MG/ML SDV IVPUSH ONE (13:03)
[2021-03-04] MEDS ORDERED: Metoclopramide 10 MG/2 ML SDV IVPUSH ONE (13:04)
[2021-03-04] MEDS ORDERED: HYDROmorphone 0.5 MG/0.5 ML Syringe IVPUSH ONE (13:05)
[2021-03-04] MEDS ORDERED: diphenhydrAMINE 50 MG/ML SDV IVPUSH PRN (14:50)
[2021-03-04] MEDS ORDERED: Famotidine 20 MG/2 ML SDV IVPUSH PRN (14:50)
[2021-03-04] MEDS ORDERED: EPINEPHrine 1 MG/ML SDV IM PRN (14:50)
[2021-03-04] MEDS ORDERED: methylPREDNISolone Sodium Succinate 125 MG/2 ML SDV IVPUSH PRN (14:50)
[2021-03-04] MEDS ORDERED: Sodium Chloride 0.9% 10 ML Syringe FLUSH SCH (15:00)
[2021-03-04 17:28] VITALS: BP 99/67; PULSE 72
== END 2021-03-04 17:20 | disposition home or self-care (01) ==
LOC: JD.ED 11:54
DX: U07.1 COVID-19 (principal); R09.1 Pleurisy; E66.9 Obesity, unspecified; Z68.31 Body mass index [BMI] 31.0-31.9, adult
CPT/HCPCS: 36415; 71045; 80053; 82728; 83615; 83735; 84484; 85025; 85379; 86140; 93005; 96374; 96375; 99285; J1100; J1170; J2765; J7050; J7121; M0245; Q0245; 93010; 99284

== ENCOUNTER 2021-10-19 13:49 | Emergency (ER) | payer BC ==
[2021-10-19] MEDS ORDERED: Sodium Chloride 0.9% 10 ML Syringe FLUSH PRN (14:27)
[2021-10-19] MEDS ORDERED: Ketorolac 30 MG/ML SDV IVPUSH ONE (14:27)
[2021-10-19] MEDS ORDERED: LORazepam 0.5 MG Tab PO ONE (14:36)
[2021-10-19] MEDS ORDERED: Sodium Chloride 0.9% 10 ML Syringe FLUSH ONE ×2 (15:16→15:28)
[2021-10-19] MEDS ORDERED: Iopamidol 755 Mg/ML 100 ML Bottle IVPUSH ONE ×2 (15:16→15:28)
[2021-10-19] MEDS ORDERED: Sodium Chloride 0.9% 100 ML IV SCH ×2 (15:30)
[2021-10-19 16:23] VITALS: BP 112/87; PULSE 86
== END 2021-10-19 16:23 | disposition home or self-care (01) ==
LOC: JD.ED 13:49
DX: R07.89 Other chest pain (principal); Z72.0 Tobacco use
CPT/HCPCS: 36415; 71045; 71275; 80053; 83735; 84443; 84484; 85025; 85379; 96374; 99285; A9270; J1885; J3490; Q9967

== ENCOUNTER 2023-05-22 11:20 | Emergency (ER) | payer BC ==
[2023-05-22] MEDS ORDERED: Diazepam 5 MG Tab PO ONE ×2 (12:09→14:40)
[2023-05-22] MEDS ORDERED: Ketorolac 60 MG/2 ML SDV IM ONE (12:09)
[2023-05-22] MEDS ORDERED: Naloxone 0.4 MG/ML SDV IVPUSH PRN (14:41)
[2023-05-22] MEDS ORDERED: HYDROmorphone 0.5 MG/0.5 ML Syringe IVPUSH ONE (14:41)
[2023-05-22] MEDS ORDERED: Sodium Chloride 0.9% 10 ML Syringe FLUSH PRN (14:41)
[2023-05-22 16:40] LABS: APPEARANCE,URINE CLEAR (Clear); BILIRUBIN,URINE 1+ (Negative); COLOR,URINE YELLOW (Yellow); GLUCOSE,URINE NEGATIVE (Negative); KETONES,URINE 3+ (Negative); LEUKOCYTE ESTERASE,URINE NEGATIVE (Negative); NITRITE,URINE NEGATIVE (Negative); OCCULT BLOOD,URINE NEGATIVE (Negative); PH,URINE 6.5 (5.0-8.0); PROTEIN,URINE 1+ (Negative); UROBILINOGEN,URINE 0.2 (0.2-1.0)
[2023-05-22 16:46] LABS: BACTERIA,URINE MODERATE /hpf (FEW); MUCUS,URINE MODERATE /hpf (FEW); RBC,URINE 0-5 /hpf (0-5); WBC,URINE 0-5 /hpf (0-5)
[2023-05-22 19:01] VITALS: BP 120/87; PULSE 87
== END 2023-05-22 18:32 | disposition home or self-care (01) ==
LOC: JD.ED 11:20
DX: M47.816 Spondylosis without myelopathy or radiculopathy, lumbar region (principal); M62.830 Muscle spasm of back; M54.40 Lumbago with sciatica, unspecified side; F17.210 Nicotine dependence, cigarettes, uncomplicated; E66.9 Obesity, unspecified; Z86.16 Personal history of COVID-19
CPT/HCPCS: 72148; 81001; 96372; 96374; 99284; A9270; J1170; J1885; J3490